=== PATIENT | female | born 1960 | race Caucasian/White ===

== ENCOUNTER 2022-09-01 13:28 | Emergency (ER) | payer BC ==
--- OUTSIDE RECORDS SUMMARY | 2022-09-01 13:33 | XMS REPORT | Continuity of Care Document ---
:1960 Author Organization [facility] t Address [address] [place] [address] Care Team Providers Name Role Phone Alfredo Edmond DO Primary Care Physician YOKASTA LACY Attending Clinician Unavailable ELIZABETH Attending Clinician Unavailable Katya Prince RN Attending Clinician Unavailable THOMAS DARDEN Attending Clinician Unavailable Thomas Darden MD Attending Clinician Brennen Roldan CRNA Attending Clinician Boris Goodman MD Attending Clinician [phone] Pob, [facility] Main Attending Clinician Unavailable Doctor Unassigned, [place] Attending Clinician Unavailable Yokasta Lacy MD Attending Clinician Only, Ad[facility] Test Attending Clinician Unavailable ASHLEY TRACY Attending Clinician Unavailable MD ASHLEY TRACY Attending Clinician Unavailable YOKASTA LACY Admitting Clinician Unavailable ELIZABETH Admitting Clinician Unavailable THOMAS DARDEN Admitting Clinician Unavailable Thomas Darden MD Admitting Clinician Yokasta Lacy MD Admitting Clinician ASHLEY TRACY Admitting Clinician Unavailable MD ASHLEY TRACY Admitting Clinician Unavailable Payers Payer Name Policy Type Policy Number Effective Date Expiration Date S navya [employer] BLUE [id number] 2020 ADVANTAGE HMO 00:00:00 Problems This patient has no known problems. Allergies, Adverse Reactions, Alerts Allergy Allergy Status Severity Reaction(s) Onset Inactive Treating Comm ents Source Name Type Date Date Clinician CEPHALOS Drug Active N/V Univers PORINS Class 3- ity of 00:00: 00 Medical Branch Cephalos Propensi Active Nausea Fainting; Uni vers porins ty to and/or 3 Itching ity of adverse Vomiting 00:00: [place] reaction 00 Medical s Branch Penicill Drug Active Rash Univers ins Allergy 2- ity of 00:00: 00 Medical Branch PENICILL Drug Active Low Rash Univers INS Class 2- ity of 00:00: 00 [facility] Penicill Propensi Active Swelling Meth poli ins ty to [address] adverse 00:00: Hospita reaction 00 l s to drug Cephalos Propensi Active Other (See Me thodi porins ty to Comments) 3 st adverse 00:00: Hospita reaction 00 l s to drug Lisinopr Propensi Active Other (See Me thodi il ty to Comments) 12-24 adverse 00:00: Hospita reaction 00 l s to drug Family History Family Member Diagnosis Comments Start Date Stop Date Source Natural brother Diabetes [facility] Natural father Aneurysm [facility] Natural mother No Known Problems Met [facility] Social History Social Habit Start Date Stop Date Quantity Comments Source Exposure to Not sure University SARS-CoV-2 (event) [facility] History of tobacco Cigarette Smoker [facility] use [facility] Tobacco use and 2020-12-14 2020-12-14 Never used Universit y of exposure 00:00:00 00:00:00 [facility] Tobacco Comment 2020-12-14 2020-12-14 quit 2012 Universit y of 00:00:00 00:00:00 [facility] Alcohol intake 2020-06-22 2020-06-22 Current drinker [facility] 00:00:00 00:00:00 of alcohol Hospital (finding) Cigarettes smoked 2020-06-04 2020-06-[address] current (pack per 00:00:00 00:00:00 Hospita l day) - Reported Cigarette 2020-06-04 2020-06-04 [facility] pack-years 00:00:00 00:00:00 Hospital Alcohol Comment 2020-06-04 2020-06-04 weekly [facility] 00:00:00 00:00:00 [facility] Sex Ass[birth year] At [birth year] [facility] 00:00:00 00:00:00 [facility] Smoking Status Start Date Stop Date Source Former smoker 2020-12-14 00:00:00 2020-12-14 00:00:00 [facility] Unknown if ever smoked [facility] Medications Ordered Filled Start Stop Current Ordering Indication Dosage Frequency Signature Comments Components Source Medication Medication Date Date Medication? Clinician (SIG) Name Name neomycin-po Yes PRN, Univer s lymyxin-dex 30 Starting ity of amethasone 14:39: on Sun (MAXITROL) 00 01/18/22 at Med ical 3.5 0939, Branch mg/g-10,000 Until unit/g-0.1 Discontinu % ed, ophthalmic Routine, ointment Intra-op neomycin-po No PRN, Unive rs lymyxin-dex 3-30 01-18 Starting ity of amethasone 14:39: 17[place]23 [place] (MAXITROL[place] 00 :47 01/18/22 at Med ical 3.5 0939, Branch mg/g-10,000 Until Wed unit/g-0.1 01/18/22 at % 1223, ophthalmic Routine, ointment Intra-op dexamethaso Yes PRN, Univer s ne -30 Starting ity of (DECADRON 14:38: on Sun [place] PHOSPHATE) 00 01/18/22 at Med ical injection 0938, Branch Until Discontinu ed, Routine, Intra-op carbachoL Yes PRN, Univers (MIOSTAT) 330 Starting ity of 0.01 % 14:38: on Sun [place] intraocular 00 01/18/22 at Il dical injection 0938, Branch Until Discontinu ed, Routine, Intra-op DUOVISC 2022-0 Yes PRN, Univers (DUOVISC 01-18 Starting ity of VISCO 14:38: on Sun [place] ELASTIC) 3 00 01/18/22 at Med ical %-4 %(0.5 0938, Branch mL) 1 % Until (0.55 mL) Discontinu intraocular ed, injection Routine, Intra-op dexamethaso 2021- No PRN, Unive rs ne 01-18 Starting ity of (DECADRON 14:38: 17:23 on Sun [place] PHOSPHATE) 00 :47 01/18/22 at Med ical injection 0938, Branch Until Sun01/18/22 at 1223, Routine, Intra-op carbachoL 2021- No PRN, Univers (MIOSTAT) 01-18 Starting ity o f 0.01 % 14:38: 17:23 on Sun [place] intraocular 00 :47 01/18/22 at Il dical injection 0938, Branch Until Sun01/18/22 at 1223, Routine, Intra-op DUOVISC 2021- No PRN, Univers (DUOVISC 01-18 Starting ity of VISCO 14:38: 17:23 on Sun ELASTIC) 3 00 :47 01/18/22 at Med ical %-4 %(0.5 0938, Branch mL) 1 % Until Wed (0.55 mL) 01/18/22 at intraocular 1223, injection Routine, Intra-op water for Yes PRN, Univers irrigation 01-18 Starting ity o f irrigation 14:32: on Wed [place] solution 00 01/18/22 at Medic al 0932, Branch Until Discontinu ed, Routine, Intra-op water for 2021- No PRN, Univers irrigation 01-18 Starting ity of irrigation 14:32: 17:23 on Wed [place] solution 00 :47 01/18/22 at Medic al 0932, Branch Until Sun01/18/22 at 1223, Routine, Intra-op Hyaluronida Yes PRN, Univer s se, Human 01-18 Starting ity of Recomb. 14:28: on Sun [place] (HYLENEX) 00 01/18/22 at Medi amee injection 0928, Branch Until Discontinu ed, Routine, Intra-op Hyaluronida 2021- No PRN, Unive rs se, Human 01-18 Starting ity o f Recomb. 14:28: 17:23 on Sun (HYLENEX) 00 :47 01/18/22 at [facility] [place]ee injection 0928, Branch Until Sun01/18/22 at 1223, Routine, Intra-op eye block Yes PRN, Univers syringe 11 30 Starting ity o f mL 14:26: on Sun01/18/22 at [facility] 0926, Branch Until Discontinu ed, Intra-op eye block 2021- No PRN, Univers syringe 11 01-18 Starting ity of mL 14:26: 17:23 on Sun 00 :47 01/18/22 at [facility] 0926, Branch Until Sun01/18/22 at 1223, Intra-op EPINEPHrine Yes PRN, Univer s 1:1,000 (1 01-18 Starting ity o f mg/mL) 14:25: on Sun (ADRENALIN) 01/18/22 at Il dical injection 0925, Branch Until Discontinu ed, Routine, Intra-op balanced Yes PRN, Univers salt irrig 01-18 Starting ity o f soln comb1 14:25: on Sun (BSS PLUS) 01/18/22 at [facility] ical ophthalmic 0925, Branch solution Until 500 mL bag Discontinu ed, Routine, Intra-op lidocaine 2021- No Intravenou U nivers 1% 01-18 s, ONCE ity of (XYLOCAINE) 14:25: 15:13 [place]TRA [place] 100 mg/10 00 :59 PROCEDURE, [facility] mL (1 %) Starting Branch injection on Sun01/18/22 at 0925, Until Alicia 01/19/22 at 1013, Routine, Intra-op propofoL IV 2021- No Intravenou Univers infusion 01-18 s, ONCE ity of 14:25: 15:13 INTRA [place] 00 :55 PROCEDURE, Medical Starting Branch on Sun01/18/22 at 0925, Until [place] 01/19/22 at 1013, Routine, Intra-op EPINEPHrine 2021- No PRN, Unive rs 1:1,000 (1 01-18 Starting ity of mg/mL) 14:25: 17:23 on Sun [place] (ADRENALIN) 00 :47 01/18/22 at Il dical injection 0925, Branch Until Sun01/18/22 at 1223, Routine, Intra-op balanced 2021- No PRN, Univers salt irrig 01-18 Starting ity of soln comb1 14:25: 17:23 on Sun [place] (BSS PLUS) 00 :47 01/18/22 at Med ical ophthalmic 0925, Branch solution Until Sun 500 mL bag 01/18/22 at 1223, Routine, Intra-op lactated 2021- No IV Univers ringers IV 01-18 Infusion, ity of infusion 14:18: 15:14 [place]OUS [place] 00 :03 PRN, Medical Starting Branch on Sun01/18/22 at 0918, Until [place] 01/19/22 at 1014, Routine, Intra-op cyclopent 2021- No .5mL 0.5 mL, Univ ers 1%-tropic 01-18 Right Eye, ity of 1%-phenyl 13:15: 13:03 ONCE, 1 [place] 2.5%-ketor 00 :00 dose, On Medic al 0.5% Sun Branch (MYDRIATIC 01/18/22 at #5) 0815, ophthalmic Routine, solution DSU Pre-op syringe 0.5 mL lactated 2021- No 1000mL at 42 Unive rs ringers IV 01-18 mL/hr, ity of infusion 13:15: 13:03 1,000 mL, Yunior as 1,000 mL 00 :00 IV Medical Infusion, Branch ONCE, 1 dose, On Sun01/18/22 at 0815, Routine, DSU Pre-op cyclopent 2021- No .5mL 0.5 mL, Univ ers 1%-tropic 01-18 Right Eye, ity of 1%-phenyl 13:15: 13:03 ONCE, 1 [place] 2.5%-ketor 00 :00 dose, On Medic al 0.5% Sun Branch (MYDRIATIC 3/30/22 at #5) 0815, ophthalmic Routine, solution DSU Pre-op syringe 0.5 mL lactated 2021- No 1000mL at 42 Unive rs ringers IV 3-30 03-30 mL/hr, ity of infusion 13:15: 13:03 1,000 mL, [place]un[place] as 1,000 mL 00 :00 IV Medical Infusion, Branch ONCE, 1 dose, On Sun01/18/22 at 0815, Routine, DSU Pre-op aspirin 325 2021-0 Yes 325mg Take 325 U nivers mg tablet 3-30 mg by ity of 10:23: mouth [place] [address] daily. Medical Branch carvediloL Yes 25mg Take 25 mg U nivers 25 mg 3-30 by mouth 2 ity of tablet 10:23: (two) [place] [address] times Medical daily with Branch meals. DULoxetine Yes 30mg Take 30 mg U nivers (CYMBALTA) 3-30 by mouth ity o f 30 mg 10:23: daily. [place] [address] Medical Branch losartan 0 Yes 100mg Take 100 Univ ers 100 mg 3-30 mg by ity of tablet 10:23: mouth [place] [address] daily. Medical Branch metFORMIN Yes 500mg Take 500 Uni vers 500 mg 3-30 mg by ity of tablet 10:23: mouth 2 [place] [address] (two) Medical times Branch daily with meals. memantine Yes 10mg Take 10 mg Un ethan (NAMENDA) 3-30 by mouth ity of 10 mg 10:23: daily. [place] [address] Medical Branch RABEprazole 0 Yes 20mg Take 20 mg Univers 10 mg CDRS 3-30 by mouth. ity of 10:23: [place] [address] Medical Branch rosuvastati 0 Yes 20mg Take 20 mg Univers n 20 mg 3-30 by mouth ity of tablet 10:23: at [place] [address] bedtime. Medical Branch metoprolol 0 Yes Take by Univ ers succinate 3-30 mouth. ity of 25 mg CSpX 10:23: [place] [address] Medical Branch aspirin 325 2021-0 Yes 325mg Take 325 U nivers mg tablet 3-30 mg by ity of 10:23: mouth [place] [address] daily. Medical Branch carvediloL 2021-0 Yes 25mg Take 25 mg U nivers 25 mg 3-30 by mouth 2 ity of tablet 10:23: (two) [place] [address] times Medical daily with Branch meals. DULoxetine 2021-0 Yes 30mg Take 30 mg U nivers (CYMBALTA) 3-30 by mouth ity o f 30 mg 10:23: daily. [place] capsule Medical Branch losartan 2021-0 Yes 100mg Take 100 Univ ers 100 mg 3-30 mg by ity of tablet 10:23: mouth [place] [address] daily. Medical Branch metFORMIN 0 Yes 500mg Take 500 Uni vers 500 mg 3-30 mg by ity of tablet 10:23: mouth 2 [place] [address] (two) Medical times Branch daily with meals. memantine 0 Yes 10mg Take 10 mg Un ethan (NAMENDA) 3-30 by mouth ity of 10 mg 10:23: daily. [place] [address] Medical Branch RABEprazole 0 Yes 20mg Take 20 mg Univers 10 mg CDRS 3-30 by mouth. ity of 10:23: [place] [address] Medical Branch rosuvastati 0 Yes 20mg Take 20 mg Univers n 20 mg 3-30 by mouth ity of tablet 10:23: at [place] [address] bedtime. Medical Branch metoprolol 0 Yes Take by Univ ers succinate 3-30 mouth. ity of 25 mg CSpX 10:23: [place] [address] Medical Branch aspirin 325 2021-0 Yes 325mg Take 325 U nivers mg tablet 3-30 mg by ity of 10:23: mouth [place] [address] daily. Medical Branch carvediloL 0 Yes 25mg Take 25 mg U nivers 25 mg 3-30 by mouth 2 ity of tablet 10:23: (two) [place] [address] times Medical daily with Branch meals. DULoxetine 2021-0 Yes 30mg Take 30 mg U nivers (CYMBALTA) 3-30 by mouth ity o f 30 mg 10:23: daily. [place] [address] Medical Branch losartan 0 Yes 100mg Take 100 Univ ers 100 mg 3-30 mg by ity of tablet 10:23: mouth [place] [address] daily. Medical Branch metFORMIN 2021-0 Yes 500mg Take 500 Uni vers 500 mg 3-30 mg by ity of tablet 10:23: mouth 2 [place] [address] (two) Medical times Branch daily with meals. memantine 2022-0 Yes 10mg Take 10 mg Un ethna (NAMENDA) 3-30 by mouth ity of 10 mg 10:23: daily. [place] [address] Medical Branch RABEprazole 0 Yes 20mg Take 20 mg Univers 10 mg CDRS 3-30 by mouth. ity of 10:23: [place] [address] Medical Branch rosuvastati 0 Yes 20mg Take 20 mg Univers n 20 mg 3-30 by mouth ity of tablet 10:23: at [place] [address] bedtime. Medical Branch metoprolol 0 Yes Take by Univ ers succinate 3-30 mouth. ity of 25 mg CSpX 10:23: [place] [address] Medical Branch aspirin 325 0 Yes 325mg Take 325 U nivers mg tablet 3-30 mg by ity of 10:23: mouth [place] [address] daily. Medical Branch carvediloL Yes 25mg Take 25 mg U nivers 25 mg 3-30 by mouth 2 ity of tablet 10:23: (two) [place] [address] times [facility] daily with Branch meals. DULoxetine Yes 30mg Take 30 mg U nivers (CYMBALTA) 3-30 by mouth ity o f 30 mg 10:23: daily. [place] [address] Medical Branch losartan 0 Yes 100mg Take 100 Univ ers 100 mg 3-30 mg by ity of tablet 10:23: mouth [place] [address] daily. Medical Branch metFORMIN 0 Yes 500mg Take 500 Uni vers 500 mg 3-30 mg by ity of tablet 10:23: mouth 2 [place] [address] (two) Medical times Branch daily with meals. memantine 0 Yes 10mg Take 10 mg Un ethan (NAMENDA) 3-30 by mouth ity of 10 mg 10:23: daily. [place] [address] Medical Branch RABEprazole 0 Yes 20mg Take 20 mg Univers 10 mg CDRS 3-30 by mouth. ity of 10:23: [place] [address] Medical Branch rosuvastati 0 Yes 20mg Take 20 mg Univers n 20 mg 3-30 by mouth ity of tablet 10:23: at [place] [address] bedtime. Medical Branch metoprolol 0 Yes Take by Univ ers succinate 3-30 mouth. ity of 25 mg CSpX 10:23: [place] [address] Medical Branch aspirin 650 0 Yes 325mg Take 325 U nivers mg EC 2-24 mg by ity of tablet 18:49: mouth [place] [address] daily. Medical Branch carvediloL 0 Yes 25mg Take 25 mg U nivers 25 mg 2-24 by mouth 2 ity of tablet 18:49: (two) [address] Medical daily with Branch meals. DULoxetine 0 Yes 30mg Take 30 mg U nivers (CYMBALTA) 2-24 by mouth ity o f 30 mg 18:49: daily. [place] capsule Medical Branch losartan 50 0 Yes 50mg Take 50 mg Univers mg tablet 2-24 by mouth ity of 18:49: daily. [address] metFORMIN 0 Yes 500mg Take 500 Uni vers 500 mg 2-24 mg by ity of tablet 18:49: mouth 2 [place] [address] (two) Medical times Branch daily with meals. memantine 0 Yes 10mg Take 10 mg Un ethan (NAMENDA) 2-24 by mouth ity of 10 mg 18:49: daily. [address] Branch RABEprazole 0 Yes 20mg Take 20 mg Univers 10 mg CDRS 2-24 by mouth. ity of 18:49: [address] rosuvastati Yes 20mg Take 20 mg Univers n 20 mg 2-24 by mouth ity of tablet 18:49: at [place] [address] bedtime. Medical Branch metoprolol Yes Take by Univ ers succinate 2-24 mouth. ity of 25 mg CSpX 18:49: [address] aspirin 650 0 Yes 325mg Take 325 U nivers mg EC 2-24 mg by ity of tablet 18:49: mouth [place] [address] daily. Medical Branch carvediloL 0 Yes 25mg Take 25 mg U nivers 25 mg 2-24 by mouth 2 ity of tablet 18:49: (two) [address] daily with Branch meals. DULoxetine 0 Yes 30mg Take 30 mg U nivers (CYMBALTA) 2-24 by mouth ity o f 30 mg 18:49: daily. [place] capsule [address] [place] [address] losartan 50 0 Yes 50mg Take 50 mg Univers mg tablet 2-24 by mouth ity of 18:49: daily. [place] 17 Medical Branch metFORMIN 2021-0 Yes 500mg Take 500 Uni vers 500 mg 2-24 mg by ity of tablet 18:49: mouth 2 [place] [address] (two) Medical [facility] daily with meals. memantine Yes 10mg Take 10 mg Un ethan (NAMENDA) 2-24 by mouth ity of 10 mg 18:49: daily. [place] tablet Medical Branch RABEprazole Yes 20mg Take 20 mg Univers 10 mg CDRS 2-24 by mouth. ity of 18:49: [place] [address] Medical Branch rosuvastati Yes 20mg Take 20 mg Univers n 20 mg 2-24 by mouth ity of tablet 18:49: at [place] [address] bedtime. Medical Branch metoprolol Yes Take by Univ ers succinate 2-24 mouth. ity of 25 mg CSpX 18:49: [address] Branch simethicone Yes PRN, Univer s (GAS RELIEF 2-24 Starting ity of (SIMETHICON 16:40: Wed [facility])) 40 00 12/15/20 at Medical mg/0.6 mL 1040, Branch drops Until Discontinu ed, Routine, Intra-op aspirin 650 Yes 325mg Take 325 U nivers mg EC 2-24 mg by ity of tablet 12:49: mouth [place] [address] daily. Medical Branch carvediloL Yes 25mg Take 25 mg U nivers 25 mg 2-24 by mouth 2 ity of tablet 12:49: (two) [place] [address] times [facility] daily with Branch meals. DULoxetine Yes 30mg Take 30 mg U nivers (CYMBALTA) 2-24 by mouth ity o f 30 mg 12:49: daily. [place] [address] Medical Branch losartan 50 Yes 50mg Take 50 mg Univers mg tablet 2-24 by mouth ity of 12:49: daily. [place] [address] Medical [place] metFORMIN Yes 500mg Take 500 Uni vers 500 mg 2-24 mg by ity of tablet 12:49: mouth 2 [place] [address] (two) Medical times [place] daily with meals. memantine Yes 10mg Take 10 mg Un ethan (NAMENDA) 2-24 by mouth ity of 10 mg 12:49: daily. [place] [address] Medical Branch RABEprazole Yes 20mg Take 20 mg Univers 10 mg CDRS 2-24 by mouth. ity of 12:49: [place] [address] Medical Branch rosuvastati Yes 20mg Take 20 mg Univers n 20 mg 2-24 by mouth ity of tablet 12:49: at [place] [address] bedtime. Medical Branch metoprolol Yes Take by [facility] ers succinate 2-24 mouth. ity of 25 mg CSpX 12:49: [place] [address] Medical [place] aspirin 650 0 Yes 325mg Take 325 U nivers mg EC 2-24 mg by ity of tablet 12:49: mouth [place] [address] daily. Medical Branch carvediloL Yes 25mg Take 25 mg U nivers 25 mg 2-24 by mouth 2 ity of tablet 12:49: (two) [place] [address] times [facility] daily with Branch meals. DULoxetine Yes 30mg Take 30 mg U nivers (CYMBALTA) 2-24 by mouth ity o f 30 mg 12:49: daily. [facility] 17 Medical Branch losartan 50 Yes 50mg Take 50 mg Univers mg tablet 2-24 by mouth ity of 12:49: daily. [place] [address] Medical [place] metFORMIN Yes 500mg Take 500 Uni vers 500 mg 2-24 mg by ity of tablet 12:49: mouth 2 [place] [address] (two) Medical times [place] daily with meals. memantine Yes 10mg Take 10 mg Un ethan (NAMENDA) 2-24 by mouth ity of 10 mg 12:49: daily. [facility] 17 Medical Branch RABEprazole Yes 20mg Take 20 mg Univers 10 mg CDRS 2-24 by mouth. ity of 12:49: [place] [address] Medical [place] rosuvastati Yes 20mg Take 20 mg Univers n 20 mg 2-24 by mouth ity of tablet 12:49: at [place] [address] bedtime. Medical Branch metoprolol Yes Take by [facility] ers succinate 2-24 mouth. ity of 25 mg CSpX 12:49: [address] DULoxetine Yes 30mg Take 30 mg U nivers (CYMBALTA) 2-09 by mouth ity o f 30 mg 21:34: daily. [facility] 58 Medical Branch losartan 50 0 Yes 50mg Take 50 mg Univers mg tablet 2-09 by mouth ity of 21:34: daily. [place] [address] Medical Branch metFORMIN 0 Yes 500mg Take 500 Uni vers 500 mg 2-09 mg by ity of tablet 21:34: mouth 2 [place] [address] (two) Medical times Branch daily with meals. memantine 0 Yes 10mg Take 10 mg Un ethan (NAMENDA) 2-09 by mouth ity of 10 mg 21:34: daily. [place] [address] Medical Branch RABEprazole 0 Yes 20mg Take 20 mg Univers 10 mg CDRS 2-09 by mouth. ity of 21:34: [place] [address] Medical Branch rosuvastati 0 Yes 20mg Take 20 mg Univers n 20 mg 2-09 by mouth ity of tablet 21:34: at [place] [address] bedtime. Medical Branch DULoxetine 0 Yes 30mg Take 30 mg U nivers (CYMBALTA) 2-09 by mouth ity o f 30 mg 21:34: daily. [address] Branch losartan 50 0 Yes 50mg Take 50 mg Univers mg tablet 2-09 by mouth ity of 21:34: daily. [place] [address] Medical Branch metFORMIN 0 Yes 500mg Take 500 Uni vers 500 mg 2-09 mg by ity of tablet 21:34: mouth 2 [place] [address] (two) Medical times [place] daily with meals. memantine 0 Yes 10mg Take 10 mg Un ethan (NAMENDA) 2-09 by mouth ity of 10 mg 21:34: daily. [place] [address] Medical Branch RABEprazole 0 Yes 20mg Take 20 mg Univers 10 mg CDRS 2-09 by mouth. ity of 21:34: [place] [address] Medical Branch rosuvastati 0 Yes 20mg Take 20 mg Univers n 20 mg 2-09 by mouth ity of tablet 21:34: at [place] [address] bedtime. Medical Branch aspirin 650 0 Yes 650mg Take 650 U nivers mg EC 2-09 mg by ity of tablet 21:34: mouth [place] 57 daily. Medical Branch carvediloL 0 Yes 25mg Take 25 mg U nivers 25 mg 2-09 by mouth 2 ity of tablet 21:34: (two) [place] [address] times Medical daily with Branch meals. aspirin 650 Yes 650mg Take 650 U nivers mg EC 2-09 mg by ity of tablet 21:34: mouth [place] 57 daily. Medical Branch carvediloL Yes 25mg Take 25 mg U nivers 25 mg 2-09 by mouth 2 ity of tablet 21:34: (two) [place] 57 times Medical daily with Branch meals. metFORMIN 2020-0 Yes 500mg QD Take 500 Met hodi XR 8-[address] (GLUCOPHAGE 14:42: mouth Hospi ta -XR) 500 mg 30 daily with l 24 hr breakfast. tablet metoprolol 2020-0 Yes 25mg QD Take 25 mg M ethodi succinate 8-[address] XL 14:42: daily. Hospita (TOPROL-XL) 30 l 25 mg 24 hr tablet losartan 2020-0 Yes 50mg QD Take 50 mg Met hodi (COZAAR) 50 8-[address] MG tablet 14:42: daily. Hospit a 30 l rosuvastati 2020-0 Yes 20mg QD Take 20 mg Methodi n (CRESTOR) 8-[address] 20 mg 14:42: daily. Hospita tablet 30 l RABEprazole 2020-0 Yes 20mg QD Take 20 mg Methodi (ACIPHEX) 8-[address] 20 mg EC 14:42: daily. Hospita tablet 30 l DULoxetine 2020-0 Yes 30mg QD Take 30 mg M ethodi (CYMBALTA) 8-[address] 30 MG 14:42: daily. Hospita capsule 30 l omega-3s/dh 2020-0 Yes 3{capsu QD Take 3 M ethodi a/epa/fish 8-21 le} capsules st oil (OMEGA 14:42: by mouth Hos joni 3 ORAL) 30 daily. l aspirin 2020-0 Yes 325mg QD Take 325 Metho di (ECOTRIN) 8-[address] 325 MG 14:42: mouth Hospita enteric 30 daily. l coated tablet Immunizations Ordered Filled Immunization Date Status Comments [facility] Immunization Name Name SARS-COV-2 COVID-19 2021-10-12 Completed Unive rsity of [employer] ANGEL-SUCROSE 00:00:00 [place] [facility] VACCINE (AGUIRRE TOP) Branch SARS-COV-2 COVID-19 2021-10-12 Completed Unive rsity of PFIZER ANGEL-SUCROSE 00:00:00 [place] [facility] VACCINE (AGUIRRE TOP) Branch SARS-COV-2 COVID-19 2021-10-12 Completed Unive rsity of PFIZER ANGEL-SUCROSE 00:00:00 [place] [facility] VACCINE (AGUIRRE TOP) Branch SARS-COV-2 COVID-19 2021-10-12 Completed Unive rsity of PFIZER ANGEL-SUCROSE 00:00:00 [place] [facility] VACCINE (AGUIRRE TOP) Branch SARS-COV-2 COVID-19 2021-02-09 Completed Unive rsity of MODERNA VACCINE 00:00:00 [place] [facility] ical Branch SARS-COV-2 COVID-19 2021-02-09 Completed Unive rsity of MODERNA VACCINE 00:00:00 [facility] [place] [facility] Branch SARS-COV-2 COVID-19 2021-02-09 Completed Unive rsity of MODERNA VACCINE 00:00:00 [facility] [place] [facility] Branch SARS-COV-2 COVID-19 2021-02-09 Completed Unive rsity of MODERNA VACCINE 00:00:00 [facility] [place] [facility] Branch SARS-COV-2 COVID-19 2021-01-12 Completed Unive rsity of MODERNA VACCINE 00:00:00 [facility] [place] [facility] Branch SARS-COV-2 COVID-19 2021-01-12 Completed Unive rsity of MODERNA VACCINE 00:00:00 [facility] [place] [facility] Branch SARS-COV-2 COVID-19 2021-01-12 Completed Unive rsity of MODERNA VACCINE 00:00:00 [facility] [place] [facility] Branch SARS-COV-2 COVID-19 2021-01-12 Completed Unive rsity of MODERNA VACCINE 00:00:00 [facility] Vital Signs Vital Name Observation Time Observation Value Comments Source Systolic blood 2022-01-18 15:10:00 130 mm[Hg] Univer sity of pressure [facility] Diastolic blood 2022-01-18 15:10:00 62 mm[Hg] Unive rsity of pressure [facility] Heart rate 2022-01-18 15:10:00 61 /min Universi ty of [facility] Respiratory rate 2022-01-18 15:10:00 14 /min Univ ersity of [place] [facility] [place] Oxygen saturation in 2022-01-18 15:10:00 95 /min [facility] Arterial blood by [facility] Pulse oximetry Branch Body temperature 2022-01-18 14:54:00 36.39 Noelle [facility] Body height 2022-01-05 13:50:00 170.2 cm [facility] [place] Body weight 2022-01-05 13:50:00 86.2 kg [facility] [place] BMI 2022-01-05 13:50:00 29.76 kg/m2 [facility] Respiratory rate 2022-01-18 14:49:00 14 /min [facility] [place] Body height 2022-01-05 13:50:00 170.2 cm [facility] [place] Body weight 2022-01-05 13:50:00 86.2 kg [facility] BMI 2022-01-05 13:50:00 29.76 kg/m2 [facility] Systolic blood 2020-12-15 18:10:00 134 mm[Hg] [facility] Diastolic blood 2020-12-15 18:10:00 63 mm[Hg] [facility] rate 2020-12-15 18:10:00 61 /min [facility] Body temperature 2020-12-15 18:10:00 36.67 Noelle [facility] Respiratory rate 2020-12-15 18:10:00 20 /min [facility] Oxygen saturation in 2020-12-15 18:10:00 99 /min [facility] Arterial blood by [facility] Pulse oximetry Branch Body height 2020-12-14 15:44:00 170.2 cm [facility] [place] Body weight 2020-12-14 15:44:00 86.2 kg [facility] BMI 2020-12-14 15:44:00 29.76 kg/m2 [facility] Procedures Procedure Date / Time Performing Source Performed Clinician PHACOEMULSIFICATION OF 2022-01-18 Thomas Darden [facility] CATARACT WITH INTRAOCULAR 14:16:00 [facility] LENS IMPLANT POCT GLUCOSE (AUTOMATED) 2022-01-18 Thomas Darden [facility] 13:00:00 Medical [place] POCT GLUCOSE (AUTOMATED) 2022-01-18 Thomas Darden [facility] 13:00:00 Medical Branch ASSIGNMENT OF BENEFITS 2022-01-13 Doctor Unassigned, [facility] 16:37:04 [facility] COLONOSCOPY (ENDO) 2020-12-15 Alfredo Edmond [facility] 16:57:12 Medical Branch POCT GLUCOSE(AGE >30DAYS) 2020-12-15 Kenneth Galindo [facility] 16:29:00 Medical Branch POCT GLUCOSE (AUTOMATED) 2020-12-15 Yokasta Lacy [facility] 16:26:00 C Medical Branch DAY SURGERY - ADC 2020-12-15 Doctor Unassigned, [facility] 06:01:00 [facility] ASSIGNMENT OF BENEFITS 2020-12-14 Doctor Unassigned, [facility] 17:50:35 [facility] ASSIGNMENT OF BENEFITS 2020-12-14 Doctor Unassigned, [facility] 17:50:17 [facility] Plan of Care Planned Activity Planned Date Details Comments Source Future Scheduled 2022-09-01 Hepatitis C screening [facility] Test 13:31:37 (procedure) [code = 554362313] Future Scheduled 2022-09-01 Screening for [facility] Test 13:31:37 malignant neoplasm of cervix (procedure) [code = 627552348] Future Scheduled 2022-09-01 BREAST CANCER [facility] Test 13:31:37 SCREENING [code = BREAST CANCER SCREENING] Future Scheduled 2022-09-01 COLONOSCOPY SCREENING [facility] Test 13:31:37 [code = COLONOSCOPY SCREENING] Future Scheduled 2022-09-01 SHINGLES VACCINES (1 Met [facility] Test 13:31:37 of 2) [code = SHINGLES VACCINES (1 of 2)] Future Scheduled 2022-09-01 HEPATITIS B VACCINES Met [facility] Test 13:31:37 (1 of 3 - Risk 3-dose series) [code = HEPATITIS B VACCINES (1 of 3 - Risk 3-dose series)] Future Scheduled 2022-09-01 COVID-19 VACCINE (4 - Me [facility] Test 13:31:37 Booster for Moderna series) [code = COVID-19 VACCINE (4 - Booster for Moderna series)] Future Scheduled 2022-09-01 INFLUENZA VACCINE Method [facility] Test 13:31:37 [code = INFLUENZA VACCINE] Encounters Start End Encounter Admission Attending Care Care Encounter Source Date/Time Date/Time Type Type Clinicians Facility Department ID 2021-08-21 Outpatient R KG [facility] NILA [id number] Univers 00:47:44 YOKASTA Mitchell itherber [facility] 2022-05-22 2022-05-22 Outpatient GREGORYLEMILLY_ EM [facility] [address] [place] 00:00:00 00:00:00 LISHA 0801 da [facility] Outre h Program 2022-01-19 2022-01-19 Nurse Katya Prince [id number] Univers 00:00:00 00:00:00 Triage MADISON 350.1.13.10 it y of HOSPITAL 4.2.7.2.686 Yunior as [id number] [place] [id number] Branch 2022-01-18 2022-01-18 Out[facility] OPH [id number] Univers 07:50:00 10:23:00 THOMAS oreilly [facility] 2022-01-18 2022-01-18 Hospital [facility] [id number] Univers 07:50:00 10:23:00 Encounter Thomas BILLS 350.1.13.10 [place] [id number] [facility] 071 Branch 2022-01-18 2022-01-18 Anesthesia Brennen Roldan [facility] 1.2.8 40.114 [id number] Univers 09:21:00 09:49:00 Event Boris Goodman 35 0.1.13.10 [place] [id number] [facility] 020 Branch 2022-01-18 2022-01-18 Surgery [facility] [id number] Univers 08:46:00 09:24:00 Thomas BILLS 350.1.13.10 [place] [id number] [facility] ica CENTER 020 Branch 2022-01-13 2022-01-13 Lending Activities Supervisor Stiven, Adc Lab Main [facility] 1.2.8 40.114 [id number] Univers 10:00:00 10:15:00 Visit Thomas Darden 350.1.13.1 0 [place] PROF[place] [id number] Il dical [facility] 353 [facility] 2022-01-13 2022-01-13 Outpatient R CHRISTIAN [facility] [id number] Univers 10:00:00 10:00:00 THOMAS itherber [facility] 2022-01-13 2022-01-13 Orders Doctor PORTER [id number] Univers 00:00:00 00:00:00 Only Unassigned, [place] 350.1.13.10 ity of [place] [facility] 4.2.7.2.686 Yunior as [id number] [facility] 00[address] [place] 2020-12-15 2020-12-15 Hospital [facility] [id number] Univers 09:15:00 12:34:00 Encounter Yokasta mitchell 350.1.13.10 [place] of [place] Surgical [id number] [facility] 071 Branch 2020-12-15 2020-12-15 Orders Doctor BUENROSTRO 1.2.840.114 [id number] Univers 00:00:00 00:00:00 Only Unassigned, [place] 350.1.13.10 ity of [place] [facility] 4.2.7.2.686 Yunior as [id number] [facility] 009 Branch 2020-12-14 2020-12-14 Laboratory Only, Adc Test [facility] 1.2.840. 114 [id number] Univers 11:51:24 12:06:24 Only Yokasta Lacy 350.1.1 3.10 [place] [id number] [facility] 353 [place] 2020-12-14 2020-12-14 [id number] Univers 08:45:00 08:45:00 YOKASTA Mitchell o f [facility] 2020-12-14 2020-12-14 Orders Doctor PORTER [id number] Univers 00:00:00 00:00:00 Only Unassigned, [place] 350.1.13.[address] [place] [facility] 4.2.7.2.686 [place] as [id number] [address] 2020-06-11 2020-06-11 [facility] 021 [id number] [place] 00:00:00 00:00:00 ASHLEY [address] 2020-06-08 2020-06-08 [facility] [id number] [place] 00:00:00 00:00:00 ASHLEY [address] Results Test Description Test Time Test Comments Results Result Comments Source POCT GLUCOSE (AUTOMATED) 2022-01-18 13:03:33 Test Item Value Reference Range Interpretation Comme nts POCT GLU (test code = 6700232125) 138 mg/dL 70-110 H Lab Interpretation (test code = 41603-7) Abnormal [facility] GLUCOSE (AUTOMATED)2022-01-18 13:03:33 Test Item Value Reference Range Interpretation Comments POCT GLU (test code = 5099610450) 138 mg/dL 70-110 H Lab Interpretation (test code = Abnormal 24862-5) [facility] GLUCOSE (AUTOMATED)2020-12-15 16:39:00 Test Item Value Reference Range Interpretation Comments POCT GLU (test code = 8406129315) 123 mg/dL 70-110 H Lab Interpretation (test code = Abnormal 25594-1) [facility] [id number] 16:29:00 Test Item Value Reference Range Interpretation Comments POCT Glu (age>30days) (test code = 123 mg/dL 70-110 A 3342) Lab Interpretation (test code = Abnormal 25059-1) [facility] [Presence] in Respiratory specimen by AGNIESZKA with probe [id number] 18:54:23 Test Item Value Reference Range Interpretation Comments SARS-CoV-2 (COVID-19) RNA Not detected Not-Detected [Presence] in Respiratory specimen by AGNIESZKA with probe detection (test code = 38373-4) [facility]
[2022-09-01 15:09] LABS: Absolute Lymphocytes (CBC) 1.4 K/uL (0.7-4.9); Lymphocytes % 17.5 % (15.3-44.8); MCV 89.9 fL (80-100); MPV 7.9 fL (7.6-11.3); RBC Red Blood Cell Count 3.34 M/uL (3.86-4.86)
[2022-09-01 15:14] LABS: Urine Blood Negative (Negative); Urine Glucose Negative (Negative); Urine Protein Negative (Negative); Urine Specific Gravity 1.015 (1.005-1.030); Urine pH 5.5 (5.0-7.0)
[2022-09-01] MEDS ORDERED: NA CHLORIDE 0.9% 500 ML ONE (15:16)
[2022-09-01 15:33] LABS: Urine RBC <5 /HPF (None Seen)
[2022-09-01 16:04] LABS: Albumin 3.4 g/dL (3.4-5.0); Potassium 3.8 mmol/L (3.5-5.1); Protein, Total 7.6 g/dL (6.4-8.2)
--- NOTE | 2022-09-01 17:17 | RAD REPORT ---
EXAM DESCRIPTION: CTAbdomen Pelvis W Contrast - 09/01/2022 4:58 pm CLINICAL HISTORY: lower abdomen pain, constipation COMPARISON: No comparisons TECHNIQUE: CT of the abdomen and pelvis was performed. All CT scans are performed using dose optimization technique as appropriate and may include automated exposure control or mA/KV adjustment according to patient size. FINDINGS: Lower chest: No acute abnormality. Liver: No acute abnormality or suspicious lesions. Biliary: No biliary ductal dilatation. Stomach: No significant focal abnormality. Duodenum: No significant focal abnormality. Pancreas: No significant abnormality. Spleen: No significant abnormality. Adrenal: No suspicious lesions. Kidney/ureter: No hydronephrosis. No renal calculi. Retroperitoneum: No retroperitoneal adenopathy. Vascular: Atherosclerosis Bowel: Moderate stool.. Appendectomy. Peritoneum: No ascites or free air. Bladder: Grossly unremarkable. Reproductive: No adnexal masses. Bones: No acute fracture. Other: n/a IMPRESSION: No acute intra-abdominal or pelvic finding. Incidental findings as noted above.
--- NOTE | 2022-09-01 18:44 | ER ---
Nurse's Notes [facility] Name: Maryse Christie Age: 62 yrs Sex: Female : 1960 Arrival Date: 09/01/2022 Time: 13:30 Bed 10 Private MD: Alfredo Edmond Diagnosis: Constipation, unspecified Presentation: 09/01 13:42 Chief complaint: Lower abdominal pain x 3 days, constipation x 1 month. Coronavirus ss screen: At this time, the client does not indicate any symptoms associated with coronavirus-19. Ebola Screen: No symptoms or risks identified at this time. Risk Assessment: Do you want to hurt yourself or someone else? Patient reports no desire to harm self or others. Onset of symptoms was July 2022. 13:42 Method Of Arrival: Ambulatory ss 13:42 Acuity: KALLIE 3 ss Historical: - Allergies: 13:43 Cephalexin Monohydrate; ss Vital Signs: 13:42 BP 141 / 67; Pulse 81; Resp 16; Temp 98.1; Pulse Ox 100% on R/A; Weight 82.55 kg; ss Height 5 ft. 6 in. (167.64 cm); Pain 6/10; 13:42 Body Mass Index 29.38 (82.55 kg, 167.64 cm) ss ED Course: 13:30 Patient arrived in ED. as 13:30 Alfredo Edmond DO is Private Physician. as 13:43 Triage completed. ss 13:43 Arm band placed on. ss 13:54 Olu Bess PA is PHCP. cp 13:54 Regis Sandoval MD is Attending Physician. cp 15:13 Lula Lomax, RN is Primary Nurse. iw 15:14 Urine collected: clean catch specimen, clear. tm3 17:00 CT Abd/Pelvis - IV Contrast Only In Process Unspecified. EDMS Administered Medications: 15:26 Drug: NS 0.9% 500 ml Route: IV; Rate: bolus; Site: right antecubital; iw Outcome: 18:44 Discharge ordered by MD. cp 18:56 Patient left the ED. iw Signatures: Dispatcher [employer] EDMS Ld Gomez tm3 Hilda Pardo as Lula Lomax RN RN Smirch, Bianka, RN Olu Tejeda PA PA cp Corrections: (The following items were deleted from the chart) 13:43 13:43 Allergies: No Known Allergies; ss
--- NOTE | 2022-09-01 18:45 | EDPHYS ---
Physician Documentation [facility] Name: Maryse Christie Age: 62 yrs Sex: Female : 1960 Arrival Date: 09/01/2022 Time: 13:30 Bed 10 Private MD: Alfredo Edmond ED Physician Regis Sandoval HPI: 09/01 14:33 This 62 yrs old Female presents to ER via Ambulatory with complaints of Abdominal Pain, cp Constipation. 14:33 The patient presents with abdominal pain in the lower abdomen. Onset: The cp symptoms/episode began/occurred 3 day(s) ago. Associated signs and symptoms: Pertinent positives: constipation, Pertinent negatives: blood in stools, chest pain, diarrhea, dysuria, fever, shortness of breath, vomiting. The symptoms are described as crampy. Severity of pain: in the emergency department the pain is unchanged despite home interventions. 14:35 Patient reports constipation with small bowel movements over past 1 month. Has had cp colonoscopy 2 years ago that was normal. Historical: - Allergies: 13:43 Cephalexin Monohydrate; ss ROS: 14:40 Constitutional: Negative for body aches, chills, fever, poor PO intake. cp 14:40 Eyes: Negative for injury, pain, redness, and discharge. cp 14:40 ENT: Negative for drainage from ear(s), ear pain, sore throat, difficulty swallowing, difficulty handling secretions. 14:40 Cardiovascular: Negative for chest pain, palpitations. 14:40 Respiratory: Negative for cough, shortness of breath, wheezing. 14:40 Abdomen/GI: Positive for abdominal pain, constipation, of the right lower quadrant and left lower quadrant, Negative for vomiting, diarrhea, anorexia, black/tarry stool, rectal bleeding. 14:40 Back: Negative for pain at rest, pain with movement. 14:40 : Negative for urinary symptoms. 14:40 Neuro: Negative for altered mental status, dizziness, headache, weakness. 14:40 All other systems are negative. Exam: 14:45 Constitutional: The patient appears in no acute distress, alert, awake, non-toxic, well cp developed, well nourished. 14:45 Head/Face: Normocephalic, atraumatic. cp 14:45 Eyes: Periorbital structures: appear normal, Conjunctiva: normal, no exudate, no injection, Sclera: no appreciated abnormality, Lids and lashes: appear normal, bilaterally. 14:45 ENT: External ear(s): are unremarkable, Nose: is normal, Mouth: Lips: moist, Oral mucosa: pink and intact, moist, Posterior pharynx: Airway: no evidence of obstruction, patent. 14:45 Neck: ROM/movement: is normal, is supple, without pain, no range of motions limitations. 14:45 Chest/axilla: Inspection: normal. 14:45 Cardiovascular: Rate: normal, Rhythm: regular, Edema: is not appreciated, JVD: is not appreciated. 14:45 Respiratory: the patient does not display signs of respiratory distress, Respirations: normal, no use of accessory muscles, no retractions, labored breathing, is not present, Breath sounds: are clear throughout, no decreased breath sounds, no stridor, no wheezing. 14:45 Abdomen/GI: Inspection: abdomen appears normal, Bowel sounds: active, all quadrants, Palpation: soft, in all quadrants, mild abdominal tenderness, in the right lower quadrant and left lower quadrant, rebound tenderness, is not appreciated, involuntary guarding, is not appreciated. 14:45 Back: CVA tenderness, is absent. 14:45 Neuro: Orientation: to person, place \T\ time. Mentation: is normal, Motor: moves all fours, strength is normal, Sensation: is normal. Vital Signs: 13:42 BP 141 / 67; Pulse 81; Resp 16; Temp 98.1; Pulse Ox 100% on R/A; Weight 82.55 kg; ss Height 5 ft. 6 in. (167.64 cm); Pain 6/10; 13:42 Body Mass Index 29.38 (82.55 kg, 167.64 cm) ss MDM: 14:17 Patient medically screened. cp 18:44 Data reviewed: vital signs, nurses notes, lab test result(s), radiologic studies, CT cp scan. 18:44 Differential diagnosis: bowel obstruction, fecal impaction, constipation, colon mass. cp Counseling: I had a detailed discussion with the patient and/or guardian regarding: the historical points, exam findings, and any diagnostic results supporting the discharge/admit diagnosis, lab results, radiology results, the need for outpatient follow up, a drainage inspector, to return to the emergency department if symptoms worsen or persist or if there are any questions or concerns that arise at home. Response to treatment: the patient's symptoms have mildly improved after treatment, and as a result, I will discharge patient. 09/01 14:28 Order name: CBC with Diff; Complete Time: 15:35 09/01 15:35 Interpretation: Normal except: RBC 3.34; HGB 10.4; HCT 30.0; MN% 12.6. 09/01 14:28 Order name: CMP; Complete Time: 18:00 cp 09/01 18:00 Interpretation: Normal except: NA 134; GLOB 4.2; A/G 0.8. cp 09/01 14:28 Order name: Lipase; Complete Time: 18:00 09/01 14:28 Order name: CT Abd/Pelvis - IV Contrast Only; Complete Time: 18:00 cp 09/01 14:28 Order name: Urine Microscopic Only; Complete Time: 15:35 09/01 15:14 Order name: Urine Dipstick-Ancillary; Complete Time: 15:35 EDMS 09/01 14:28 Order name: IV Saline Lock; Complete Time: 15:07 cp 09/01 14:28 Order name: Labs collected and sent; Complete Time: 15:08 cp 09/01 14:28 Order name: Urine Dipstick-Ancillary (obtain specimen); Complete Time: 15:08 cp Administered Medications: 15:26 Drug: NS 0.9% 500 ml Route: IV; Rate: bolus; Site: right antecubital; iw Disposition Summary: 09/01/22 18:44 Discharge Ordered Location: Home cp Problem: new cp Symptoms: have improved cp Condition: Stable cp Diagnosis - Constipation, unspecified cp Followup: cp - With: Private Physician - When: 2 - 3 days - Reason: Recheck today's complaints Discharge Instructions: - Discharge Summary Sheet cp - Constipation, Adult cp - High-Fiber Diet cp Forms: - Medication Reconciliation Form cp - Thank You Letter cp - Antibiotic Education cp - Prescription Opioid Use cp Prescriptions: - Dulcolax (bisacodyl) 10 mg Rectal suppository - insert 1 suppository by RECTAL route once daily As needed; 15 suppository; cp Refills: 0, Product Selection Permitted - Lactulose 10 gram/15 mL Oral Solution - take 30 milliliters by ORAL route once daily for 7 days; 300 milliliter; cp Refills: 0, Product Selection Permitted Signatures: Dispatcher [employer] Lula Fang RN RN iw Smirch, Shelby, RN RN ss Page, Corey, PA PA cp Corrections: (The following items were deleted from the chart) 13:43 13:43 Allergies: No Known Allergies; ss 18:00 18:00 Normal except: NA 134. cp cp
[2022-09-01] MEDS ORDERED: BISACODYL E.C. 5 MG TAB PO ONE (18:49)
[2022-09-01] MEDS ORDERED: DICYCLOMINE HCL 10 MG CAP ONE (18:49)
[2022-09-01] MEDS ORDERED: LACTULOSE 20 GM/30 ML UCUP ONE (18:50)
[2022-09-01 19:01] VITALS: BP 141/67; TEMP 98.1; O2SAT 100
== END 2022-09-01 18:56 | disposition home or self-care (01) ==
LOC: ER 13:28
DX: K59.00 Constipation, unspecified (principal); Z88.8 Allergy status to other drugs, medicaments and biological substances
CPT/HCPCS: 85025; 36415; 83690; 80053; 74177; 99283; Q9967; J7040; 81003; 81015

== ENCOUNTER 2024-06-18 09:01 | Day surgery (SDC) | payer OTHER ==
[2024-06-18 09:52] VITALS: BMI 29.0
[2024-06-18 10:10] LABS: Absolute Eosinophils 0.2 K/uL (0-0.5); Absolute Lymphocytes (CBC) 1.6 K/uL (0.7-4.9); Absolute Monocytes 0.4 K/uL (0.1-1.3); Absolute Neutrophil 2.9 K/uL (1.8-8.0); Basophils % 0.6 % (0-1.3); Eosinophils % 4.7 % (0-4.4); Hemoglobin 10.8 g/dL (12.0-15.0); Lymphocytes % 30.5 % (15.3-44.8); MCH 32.5 pg (27.0-35.0); MPV 8.1 fL (7.6-11.3); Neutrophils % 56.2 % (41.7-73.7); Platelets 208 thou/uL (152-406); RBC Red Blood Cell Count 3.33 M/uL (3.86-4.86); Red Cell Distribution Width 13.4 % (12.1-15.2)
[2024-06-18 10:18] LABS: PT Prothrombin Time 11.8 SECONDS (9.4-12.5); PTT, Activated Partial Thromb 32.6 SECONDS (24.3-36.9); Protime INR 1.06
[2024-06-18 10:28] LABS: Albumin 3.5 g/dL (3.4-5.0); Albumin/Globulin Ratio 1.1 (1.1-1.8); Anion Gap 4.6 mEq/L (5.0-15.0); Bilirubin Direct 0.2 mg/dL (0-0.2); Bilirubin Indirect, Calculated 0.4 mg/dL (0.2-0.8); Bilirubin Total 0.6 mg/dL (0.2-1.0); Globulin 3.2 g/dL (2.3-3.5); Potassium 4.6 mEq/L (3.5-5.1); Protein, Total 6.7 g/dL (6.4-8.2)
--- NOTE | 2024-06-18 12:55 | RAD REPORT ---
EXAM DESCRIPTION: RAD - Lumbar Puncture For Dx - 06/18/2024 12:19 pm CLINICAL HISTORY: Cognitive impairment COMPARISON: None FINDINGS: The risks, benefits and alternatives to the procedure were explained to the patient and in formed consent obtained. The patient was placed prone into the fluoroscopy suite. The skin and subcutaneous tissues were anest hetized with lidocaine. Under fluoroscopic guidance a 22 gauge spinal needle was advanced into the th ecal sac at L2-3 level. 15 cc of CSF was removed and sent to the lab. Patient experienced no immediate complication One fluoroscopic spot image obtained. Fluoroscopy time 1 minutes IMPRESSION: Lumbar puncture
[2024-06-18 13:27] LABS: CSF Glucose 56 mg/dL (40-70)
[2024-06-18 13:54] LABS: Fluid Total Volume 14.5 ml
[2024-06-18 13:55] LABS: Appearance CLEAR (CLEAR); Body Fluid Source CSF; Body Fluid WBC 1 /mm^3; Color of Supernate Not Xanthochromic (Not Xantho); Color of fluid Colorless (COLORLESS); Tube # #2
[2024-06-18 14:12] VITALS: BP 153/69; TEMP 97; O2SAT 100
[2024-06-28 19:52] LABS: BETA A 42/40 RATIO 0.11
== END 2024-06-18 14:05 | disposition home or self-care (01) ==
LOC: OR 09:01 → DS 14:05
PROVIDERS: ATTEND Psychiatry & Neurology Neurology with Special Qualifications in Child Neurology
PROC: 009U3ZX Drainage of Spinal Canal, Percutaneous Approach, Diagnostic (ICD-10-PCS; principal; 2024-06-18)
PROC: B01BZZZ Fluoroscopy of Spinal Cord (ICD-10-PCS; 2024-06-18)
DX: G31.84 Mild cognitive impairment of uncertain or unknown etiology (principal); G44.209 Tension-type headache, unspecified, not intractable; G45.9 Transient cerebral ischemic attack, unspecified
CPT/HCPCS: 36415; 62328; 77003; 80048; 80076; 82542; 82945; 84157; 85025; 85610; 85730; 89050

== ENCOUNTER 2024-12-16 08:26 | Observation (INO) | payer OTHER ==
[2024-12-16] MEDS ORDERED: MORPHINE 4 MG/ML SYR ONE (08:44)
[2024-12-16] MEDS ORDERED: ONDANSETRON 4 MG/2 ML VIAL ONE ×2 (08:44→12:04)
--- NOTE | 2024-12-16 09:04 | RAD REPORT ---
EXAMINATION: Head Brain Wo Cont CLINICAL INDICATION: Female, 64 years old.HEADACHE TECHNIQUE: Axial CT images from the skull base to the vertex without intravenous contrast. Coronal an d sagittal reformatted images were created from the data set. One or more of the following dose reduction techniques were used: Automated exposure control, adjustment of the mA and/or kV according to patient size, and/or iterative reconstruction. Unless otherwise specified, incidental findings do not require dedicated imaging follow-up. [id number]. COMPARISON: 08/02/2015 FINDINGS: INTRACRANIAL: No acute intracranial hemorrhage. No hydrocephalus. No mass effect or midline shift. No significant white matter disease. VASCULATURE: No visualized abnormalities in the arteries or dural venous sinuses. SCALP/SKULL: No calvarial fracture identified. No acute soft tissue abnormality. SINUSES: The visualized paranasal sinuses and mastoid air cells are predominantly clear. No significa nt mastoid fluid. IMPRESSION: No acute intracranial abnormality.
--- NOTE | 2024-12-16 09:05 | RAD REPORT ---
EXAMINATION: CTA HEAD CLINICAL INDICATION: Female, 64 years old. HEADACHE TECHNIQUE: Axial CT images were obtained through the head after intravenous contrast utilizing angiog raphic protocol with 3D post-processing (maximum intensity projection images, volume rendered images and/or shaded surface rendered images). One or more of the following dose reduction technique s were used: Automated exposure control, adjustment of the mA and/or kV according to patient size, and/or iterative reconstruction. Unless otherwise specified, incidental findings do not require dedic ated imaging follow-up. COMPARISON: No prior exam. FINDINGS: ICA: The petrous, cavernous, and supraclinoid segments of the bilateral internal carotid arteries are normal. The ophthalmic artery origins are visualized and normal. The posterior communicating arteries are patent. Bilateral ICA calcified plaque. FEDE: Anterior cerebral arteries are normal bilaterally. The anterior communicating artery is patent. MCA: Middle cerebral arteries are normal bilaterally. ENDLESS BELT FINISHER: Posterior cerebral arteries are normal bilaterally. Vertebrobasilar: The vertebral arteries are patent. The basilar artery is normal in appearance. Right dominant vertebral artery. 3D images confirm these findings. IMPRESSION: No occlusion, aneurysm, or hemodynamically significant stenosis identified.
[2024-12-16 09:08] LABS: Absolute Eosinophils 0.3 K/uL (0-0.5); Absolute Lymphocytes (CBC) 1.3 K/uL (0.7-4.9); Absolute Monocytes 0.5 K/uL (0.1-1.3); Absolute Neutrophil 2.2 K/uL (1.8-8.0); Basophils % 0.7 % (0-1.3); Eosinophils % 6.1 % (0-4.4); Hematocrit 35.4 % (36.0-45.0); Hemoglobin 12.4 g/dL (12.0-15.0); Lymphocytes % 30.3 % (15.3-44.8); MCH 31.7 pg (27.0-35.0); MCV 90.6 fL (80-100); MPV 8.9 fL (7.6-11.3); Monocytes % 10.8 % (3.3-12.3); Neutrophils % 52.1 % (41.7-73.7); Platelets 179 thou/uL (152-406); RBC Red Blood Cell Count 3.91 M/uL (3.86-4.86); Red Cell Distribution Width 13.8 % (12.1-15.2)
[2024-12-16 09:20] LABS: PT Prothrombin Time 12.5 SECONDS (10.0-13.0); PTT, Activated Partial Thromb 31.1 SECONDS (24.3-36.9); Protime INR 1.1
[2024-12-16 09:24] LABS: Anion Gap 8.7 mEq/L (5.0-15.0); Potassium 3.7 mEq/L (3.5-5.1); Troponin High Sensitivity 8.5 pg/mL (<58.9)
[2024-12-16 10:03] LABS: Sqamous Epithelial <5 /HPF (None Seen); Transitional Epithelial <5 /HPF (None Seen); Urine Bacteria None Seen /HPF (<20); Urine Bilirubin NEGATIVE (Negative); Urine Blood Negative (Negative); Urine Clarity Clear (Clear); Urine Color Light-Yellow (Yellow); Urine Culture Reflex Order NOT NEEDED; Urine Glucose NEGATIVE (Negative); Urine Ketones NEGATIVE (Negative); Urine Microscopic Reflex YN ORDER UMIC; Urine Mucus Slight /HPF (None Seen); Urine Nitrite NEGATIVE (Negative); Urine Protein NEGATIVE (Negative); Urine RBC <5 /HPF (None Seen); Urine Urobilinogen Normal (Normal); Urine WBC <5 /HPF (<5)
[2024-12-16 10:04] LABS: Specific Gravity > 1.030 (1.005-1.030)
--- NOTE | 2024-12-16 10:13 | RAD REPORT ---
EXAM: Chest Single View HISTORY: 64 years Female hypoxemia COMPARISON: 12/30/2007 FINDINGS: LUNGS/PLEURA: The lungs are clear. No pleural effusions or pneumothorax. No pulmonary edema. CARDIAC/MEDIASTINUM: The cardiac silhouette is within normal limits. UPPER ABDOMEN: No significant abnormality. BONES: No acute abnormality. LINES/TUBES/OTHER: N/A IMPRESSION: No evidence of acute cardiopulmonary disease.
[2024-12-16] MEDS ORDERED: NA CHLORIDE 0.9% 500 ML ONE ×2 (10:57→14:53)
[2024-12-16] MEDS ORDERED: MORPHINE 2 MG/ML SYR ONE (10:57)
[2024-12-16] MEDS ORDERED: carBAMazepine 200 MG TAB ONE (10:57)
--- NOTE | 2024-12-16 11:04 | EDPHYS ---
Physician Documentation [facility] Name: Maryse Christie Age: 64 yrs Sex: Female : 1960 Arrival Date: 12/16/2024 Time: 08:26 Bed 13 Private MD: ED Physician Zhang Ahumada HPI: 12/16 09:35 This 64 yrs old Female presents to ER via Ambulatory with complaints of Headache, rn disoriented. 09:35 The patient complains of pain to the top of head and forehead. Onset: The rn symptoms/episode began/occurred yesterday. Associated signs and symptoms: Pertinent positives: altered mental status, dizziness, Pertinent negatives: fever, neck stiffness, rash, vision changes, vision loss, weakness, vertigo. The symptoms are alleviated by nothing. the symptoms are aggravated by nothing. The patient has not experienced similar symptoms in the past. Patient reports onset of headache and confusion yesterday. Denies head injury. No fever or chills. No vomiting. Reports frontal headache and hurts on top of head as well, throbbing, associated with confusion and having difficulty understanding things. Patient states she just does not feel right. Denies any focal weakness or numbness. No trauma.. Historical: - Allergies: 08:35 Cephalexin Monohydrate; ll1 - PMHx: 08:35 Hypertensive disorder; Hypercholesterolemia; Diabetes mellitus; ll1 - Immunization history:: Adult Immunizations up to date. - Infectious Disease History:: Denies. - Social history:: Smoking status: Patient/guardian denies using tobacco, the patient reports quitting approximately 10 years ago. - Family history:: not pertinent. - Hospitalizations: : No recent hospitalization is reported. ROS: 09:35 Constitutional: Negative for fever, chills, and weight loss, Neck: Negative for injury, rn pain, and swelling, Cardiovascular: Negative for chest pain, palpitations, and edema, Respiratory: Negative for shortness of breath, cough, wheezing, and pleuritic chest pain, Abdomen/GI: Positive for nausea, negative for vomiting Back: Negative for injury and pain, : Negative for injury, bleeding, discharge, and swelling, MS/Extremity: Negative for injury and deformity, Skin: Negative for injury, rash, and discoloration, Neuro: Positive for headache, negative for focal weakness/numbness/tingling/seizure Exam: 09:35 Constitutional: This is a well developed, well nourished patient who is awake, alert, rn slow to respond and sometimes inappropriate answers Head/Face: Normocephalic, atraumatic. Eyes: Pupils equal round and reactive to light, extra-ocular motions intact. Cardiovascular: Regular rate and rhythm. No pulse deficits. Respiratory: No increased work of breathing, no retractions or nasal flaring. Abdomen/GI: Soft, non-tender MS/ Extremity: Pulses equal, no cyanosis. Neurovascular intact. Full, normal range of motion. Equal circumference. Neuro: Awake and alert, GCS 15, oriented to person, place, not time. Cranial nerves II-XII grossly intact. Motor strength 5/5 in all extremities. Sensory grossly intact. Cerebellar exam normal. Get some questions and words mixed up, refers to head has "house". Difficulty following simple commands like raising eyebrows or smiling, seems confused 09:42 ECG was reviewed by the Attending Physician. rn Vital Signs: 08:36 BP 157 / 104; Pulse 72; Resp 17; Temp 97.5; Pulse Ox 97% ; Weight 81.65 kg; Height 5 ll1 ft. 8 in. ; 09:11 BP 153 / 69; Pulse 67; Resp 16 S; Pulse Ox 93% on R/A; kc6 10:35 BP 135 / 86; Pulse 67; Resp 21; Pulse Ox 99% on R/A; hb 11:50 BP 145 / 65; Pulse 60; Resp 18 S; Pulse Ox 94% on R/A; kc6 17:15 BP 173 / 75; Pulse 69; Resp 18; Pulse Ox 97% ; db 18:15 BP 159 / 79; Pulse 74; Resp 18; Pulse Ox 99% on R/A; db 18:15 BP 170 / 84; Pulse 67; Resp 18; Pulse Ox 97% ; db 08:36 Body Mass Index 27.37 (81.65 kg, 172.72 cm) ll1 NIH Stroke Scale Scores: 09:08 NIHSS Score: 1 kc6 16:00 NIHSS Score: 1 db 16:00 NIHSS Score: 1 db [place] Coma Score: 11:01 Eye Response: spontaneous(4). Motor Response: obeys commands(6). Verbal Response: rn oriented(5). Total: 15. 18:15 Eye Response: to voice(3). Motor Response: obeys commands(6). Verbal Response: db confused(4). Total: 13. MDM: 08:29 Medical Screening Exam initiated rn 11:01 Differential diagnosis: cluster headache, hypertensive headache, intracerebral rn hemorrhage, migraine, neoplasm, subarachnoid bleed, tension headache, vasomotor headache, Trigeminal neuralgia. Data reviewed: vital signs, nurses notes, lab test result(s), EKG, radiologic studies, CT scan, and as a result, I will admit patient. Consideration of Admission/Observation Patient was admitted/placed on observation. Escalation of care including admission/observation considered. Care significantly affected by the following chronic conditions: Diabetes, Hypertension. Counseling: I had a detailed discussion with the patient and/or guardian regarding the historical points, exam findings, and any diagnostic results supporting the discharge/admit diagnosis, lab results, radiology results, the need for further work-up and treatment in the hospital. Response to treatment: There is no appreciated change of the patient's symptoms at this time, and as a result, I will admit patient. ED course: Patient still not back to baseline. Still with inappropriate answers, examples are referring to her head as "house" or "breast". CT head and angio negative for acute findings, specifically bladder aneurysm. No LVO. Will admit to hospitalist service for stroke rule out.. 17:07 ED course: Dr Lemus called with results of MRI that was ordered. He states a rn differential diagnosis that includes early subarachnoid bleed versus cerebritis versus inflammation. Notified hospitalist service of results. Consulting with Dr. Brunson. Requesting transfer. . 17:29 ED course: Consulted with neuro ICU attending at [facility], he accepts patient rn for transfer, transfer center trying to obtain bed and will call us back. Updated spouse and patient, they are happy to go to [facility].. 12/16 08:35 Order name: Basic Metabolic Panel; Complete Time: 10:06 rn 12/16 08:35 Order name: CBC with Diff; Complete Time: 09:16 rn 12/16 08:35 Order name: High Sensitivity Troponin; Complete Time: 10:06 rn 12/16 08:35 Order name: Protime (+inr); Complete Time: 10:06 rn 12/16 08:35 Order name: Ptt, Activated; Complete Time: 10:06 rn 12/16 09:17 Order name: Urinalysis w/ reflexes; Complete Time: 10:06 rn 12/16 12:22 Order name: T4,Total; Complete Time: 17:24 EDMS 12/16 12:22 Order name: Basic Metabolic Panel EDMS 12/16 12:22 Order name: Basic Metabolic Panel EDMS 12/16 12:22 Order name: Basic Metabolic Panel EDMS 12/16 12:22 Order name: Basic Metabolic Panel EDMS 12/16 12:22 Order name: Basic Metabolic Panel EDMS 12/16 12:22 Order name: Basic Metabolic Panel EDMS 12/16 12:22 Order name: Lipid Profile EDMS 12/16 12:22 Order name: Lipid Profile EDMS 12/16 12:22 Order name: Magnesium EDMS 12/16 12:22 Order name: Magnesium EDMS 12/16 12:22 Order name: Magnesium EDMS 12/16 12:22 Order name: Magnesium EDMS 12/16 12:22 Order name: Magnesium EDMS 12/16 12:22 Order name: Magnesium EDMS 12/16 12:22 Order name: Phosphorus EDMS 12/16 12:22 Order name: Phosphorus EDMS 12/16 12:22 Order name: Phosphorus EDMS 12/16 12:22 Order name: Phosphorus EDMS 12/16 12:22 Order name: Phosphorus EDMS 12/16 12:22 Order name: Phosphorus EDMS 12/16 12:22 Order name: Thyroid Stimulating Hormone; Complete Time: 17:24 EDMS 12/16 12:22 Order name: CBC with Automated Diff EDMS 12/16 12:22 Order name: CBC with Automated Diff EDMS 12/16 12:22 Order name: CBC with Automated Diff EDMS 12/16 12:22 Order name: CBC with Automated Diff EDMS 12/16 12:22 Order name: CBC with Automated Diff EDMS 12/16 12:22 Order name: CBC with Automated Diff EDMS 12/16 12:23 Order name: Troponin High Sensitivity EDMS 12/16 12:23 Order name: Troponin High Sensitivity EDMS 12/16 12:23 Order name: Troponin High Sensitivity EDMS 12/16 08:35 Order name: CT Head Angio; Complete Time: 09:16 rn 12/16 08:35 Order name: CT Head Brain wo Cont; Complete Time: 09:16 rn 12/16 09:17 Order name: XRAY Chest (1 view); Complete Time: 10:27 rn 12/16 12:22 Order name: Echo with Doppler [facility] 12/16 12:23 Order name: Stroke Protocol [facility] 12/16 17:10 Order name: MRI; Complete Time: 17:24 [facility] 12/16 08:35 Order name: EKG; Complete Time: 08:35 rn 12/16 12:22 Order name: Physical Therapy Consult [facility] 12/16 12:22 Order name: Speech Therapy Consult [facility] 12/16 08:35 Order name: Accucheck; Complete Time: 09:07 rn 12/16 08:35 Order name: Cardiac monitoring; Complete Time: 09: rn 12/16 08:35 Order name: EKG - Nurse/Tech; Complete Time: 09: rn 12/16 08:35 Order name: IV Saline Lock; Complete Time: 09: rn 12/16 08:35 Order name: Labs collected and sent; Complete Time: 09: rn 12/16 08:35 Order name: NPO; Complete Time: 09: rn 12/16 08:35 Order name: O2 Per Protocol; Complete Time: 09: rn 12/16 08:35 Order name: O2 Sat Monitoring; Complete Time: 09: rn 12/16 08:35 Order name: Stroke Swallow Screen; Complete Time: 09:08 rn EC:42 Rate is 69 beats/min. Rhythm is regular. QRS [place] is Normal. MO interval is normal. QRS rn interval is prolonged at 148 msec. No Q waves. T waves are Normal. No ST changes noted. Clinical impression: NSR w/ Non-specific ST/T Changes. Interpreted by me. Reviewed by me. Administered Medications: 09:01 Drug: morphine IVP or IV 2 mg IVP once over 4 mins Route: IVP; Infused Over: 4 mins; hb Site: right antecubital; 10:00 Follow up: Response: No adverse reaction; Pain is decreased; RASS: Alert and Calm (0) 6 09:01 Drug: Ondansetron IVP 4 mg IVP once; over 2 minutes Route: IVP; Site: right antecubital;hb 10:00 Follow up: Response: No adverse reaction 6 11:05 Drug: morphine IVP or IV 2 mg IVP once over 4 mins Route: IVP; Infused Over: 4 mins; kc6 Site: right antecubital; 11:51 Follow up: Response: No adverse reaction; Pain is decreased; RASS: Alert and Calm (0) kc6 11:05 Drug: carBAMazepine PO 100 mg PO once Route: PO; kc6 11:51 Follow up: Response: No adverse reaction kc6 11:05 Drug: NS 0.9% IV 500 ml IV at bolus once; to be given as a bolus over 30 minutes Route: kc6 IV; Rate: bolus; Site: right antecubital; 13:00 Follow up: Response: No adverse reaction; IV Status: Completed infusion; IV Intake: kc6 500ml 12:05 Drug: Ondansetron IVP 4 mg IVP once; over 2 minutes Route: IVP; Site: right antecubital;kc6 13:00 Follow up: Response: No adverse reaction; Nausea is decreased; Vomiting decreased kc6 Disposition Summary: 12/16/24 17:25 Transfer Ordered Notes: Transfer Location: [facility] rn Reason: Higher level of care rn Condition: Stable(12/16/24 17:25) rn Problem: new(12/16/24 17:25) rn Symptoms: are unchanged(12/16/24 17:25) rn Accepting Physician: (12/16/24 19:02) ll1 Diagnosis - Headache rn - Altered mental status, unspecified(12/16/24 17:25) rn - Nontraumatic subarachnoid hemorrhage, unspecified rn Forms: - Medication Reconciliation Form rn - SBAR form furnace checker time excluding procedures: 17:24 Critical care time: Bedside Care: 25 minutes, Consultation: 10 minutes. Total time: 35 rn minutes NIH Stroke Scale - NIH Stroke Score Date: 12/16/2024 Time: 09:08 Total Score = 1 10. Dysarthria (speech clarity - read or repeat words) - 0(Normal) 11. Extinction and Inattention (visual/tactile/auditory/spatial/personal) - 0(No abnormality) 1a. Level of Consciousness (LOC) - 0(Alert) 1b. Level of Consciousness (LOC) (Month \\T\\ Age) - 0(Both) 1c. LOC Commands (Open \\T\\ Closes Eyes/Slab Stripper) - 0(Both) 2. Best Gaze (Lateral Gaze Paresis) - 0(Normal) 3. Visual Field Loss - 1(Partial hemianopia) 4. Facial Palsy - 0(Normal) 5a. Left Arm: Motor (10-second hold) - 0(No drift) 5b. Right Arm: Motor (10-second hold) - 0(No drift) 6a. Left Leg: Motor (5-second hold - always test supine) - 0(No drift) 6b. Right Leg: Motor (5-second hold - always test supine) - 0(No drift) 7. Limb Ataxia (finger/nose \\T\\ heel/[place] - test with eyes open) - 0(Absent) 8. Sensory Loss (pinprick arms/legs/face) - 0(Normal) 9. Best Language: Aphasia (description/naming/reading) - 0(No aphasia) Initials: [facility] NIH Stroke Scale - NIH Stroke Score Date: 12/16/2024 Time: 16:00 Total Score = 1 10. Dysarthria (speech clarity - read or repeat words) - 0(Normal) 11. Extinction and Inattention (visual/tactile/auditory/spatial/personal) - 0(No abnormality) 1a. Level of Consciousness (LOC) - 0(Alert) 1b. Level of Consciousness (LOC) (Month \\T\\ Age) - 1(One) 1c. LOC Commands (Open \\T\\ Closes Eyes/Slab Stripper) - 0(Both) 2. Best Gaze (Lateral Gaze Paresis) - 0(Normal) 3. Visual Field Loss - 0(No visual loss) 4. Facial Palsy - 0(Normal) 5a. Left Arm: Motor (10-second hold) - 0(No drift) 5b. Right Arm: Motor (10-second hold) - 0(No drift) 6a. Left Leg: Motor (5-second hold - always test supine) - 0(No drift) 6b. Right Leg: Motor (5-second hold - always test supine) - 0(No drift) 7. Limb Ataxia (finger/nose \\T\\ heel/[place] - test with eyes open) - 0(Absent) 8. Sensory Loss (pinprick arms/legs/face) - 0(Normal) 9. Best Language: Aphasia (description/naming/reading) - 0(No aphasia) Initials: NIH Stroke Scale - NIH Stroke Score Date: 12/16/2024 Time: 16:00 Total Score = 1 10. Dysarthria (speech clarity - read or repeat words) - 0(Normal) 11. Extinction and Inattention (visual/tactile/auditory/spatial/personal) - 0(No abnormality) 1a. Level of Consciousness (LOC) - 0(Alert) 1b. Level of Consciousness (LOC) (Month \\T\\ Age) - 1(One) 1c. LOC Commands (Open \\T\\ Closes Eyes/Slab Stripper) - 0(Both) 2. Best Gaze (Lateral Gaze Paresis) - 0(Normal) 3. Visual Field Loss - 0(No visual loss) 4. Facial Palsy - 0(Normal) 5a. Left Arm: Motor (10-second hold) - 0(No drift) 5b. Right Arm: Motor (10-second hold) - 0(No drift) 6a. Left Leg: Motor (5-second hold - always test supine) - 0(No drift) 6b. Right Leg: Motor (5-second hold - always test supine) - 0(No drift) 7. Limb Ataxia (finger/nose \\T\\ heel/[place] - test with eyes open) - 0(Absent) 8. Sensory Loss (pinprick arms/legs/face) - 0(Normal) 9. Best Language: Aphasia (description/naming/reading) - 0(No aphasia) Initials: db Signatures: Dispatcher [employer] EDMS Estephanie Marmolejo Roman, MD MD rn Baxter, Heather, RN RN Lisa De La Paz, RN RN ll1 Yamilex Hidalgo RN RN kc6 Ann-Marie Napier RN RN kb3 Corrections: (The following items were deleted from the chart) 12:41 11:03 Telemetry/MedSurg (Inpatient) rn kb3 12:41 11:03 rn kb3 16:43 12:41 [facility] ER HOLD kb3 bd 16:43 12:41 ERHOLD- kb3 bd 17:11 17:07 ED course: Dr Lemus called with results of MRI that was ordered. He rn states a differential diagnosis that includes early subarachnoid bleed versus cerebritis versus inflammation.. rn 17:24 16:43 Telemetry/MedSurg (Inpatient) bd kb3 17:24 16:43 231 bd kb3 17:25 11:03 Inpatient Admission rn rn 17:25 11:03 Pepe, Azfar rn rn 11:03 Stable rn rn 11:03 new rn rn 11:03 are unchanged rn rn 11:03 Standard rn rn 11:03 Altered mental status, unspecified rn rn 17:24 [facility] ER HOLD kb3 rn 17:24 ERHOLD- kb3 rn :02 17:25 Dr. thao ll1
--- NOTE | 2024-12-16 11:04 | ER ---
Nurse's Notes [facility] Name: Maryse Christie Age: 64 yrs Sex: Female : 1960 Arrival Date: 12/16/2024 Time: 08:26 Bed 13 Private MD: Diagnosis: Headache;Altered mental status, unspecified;Nontraumatic subarachnoid hemorrhage, unspecified Presentation: 12/16 08:36 Chief complaint: Patient states: L sided SHARP began yesterday. Confused, dizzy, near ll1 syncope feeling this morning. Coronavirus screen: Client denies travel out of the [place] in the last 14 days. At this time, the client does not indicate any symptoms associated with coronavirus-19. Ebola Screen: Patient denies travel to an Ebola-affected area in the 21 days before illness onset. Initial Sepsis Screen: Does the patient meet any 2 criteria? No. Patient's initial sepsis screen is negative. Does the patient have a suspected source of infection? No. Patient's initial sepsis screen is negative. Risk Assessment: Do you want to hurt yourself or someone else? Patient reports no desire to harm self or others. Onset of symptoms was December 15, 2024. 08:36 Method Of Arrival: Ambulatory ll1 08:36 Acuity: KALLIE 2 ll1 Triage Assessment: 08:37 General: Appears distressed, uncomfortable, Behavior is calm, cooperative, appropriate ll1 for age. Pain: Complains of pain in head Quality of pain is described as aching. Neuro: Reports dizziness, headache weakness no vision R eye. Historical: - Allergies: 08:35 Cephalexin Monohydrate; ll1 - PMHx: 08:35 Hypertensive disorder; Hypercholesterolemia; Diabetes mellitus; ll1 - Immunization history:: Adult Immunizations up to date. - Infectious Disease History:: Denies. - Social history:: Smoking status: Patient/guardian denies using tobacco, the patient reports quitting approximately 10 years ago. - Family history:: not pertinent. - Hospitalizations: : No recent hospitalization is reported. Screenin:37 [facility] ED Fall Risk Assessment (Adult) History of falling in the last 3 months, hb including since admission No falls in past 3 months (0 pts) Confusion or Disorientation Yes (5 pts) Intoxicated or Sedated No (0 pts) Impaired Gait Yes (1 pt) Mobility Assist Device Used No (0 pt) Altered Elimination No (0 pt) Score/Fall Risk Level 3 or more points = High Risk Oriented to surroundings, Maintained a safe environment, Educated pt \\T\\ family on fall prevention, incl call for assistance when getting out of bed, Assessed \\T\\ reinforced patient's understanding of fall precautions. Abuse screen: Denies threats or abuse. Denies injuries from another. Nutritional screening: No deficits noted. Tuberculosis screening: No symptoms or risk factors identified. 09:08 VAN Screening: Arm Drift: Patient shows no arm weakness. Patient is VAN negative. kc6 Visual Disturbance: Field Cut: Abnormal visual negrete noted. Provider notified of VAN + scoring. pt reports not being able to see out of the left eye, however upon exam the pt is unable to pinpoint visual deficits. Aphasia: No aphasia noted. Neglect: No neglect noted. Pam Swallow Protocol Brief Cognitive Screen What is your name? Normal, Where are you right now? Abnormal What year is it? Abnormal Oral Mechanism Examination Facial Symmetry: Normal, Motion: Normal, Lip Closure: Normal, Oral Mechanism Result: Normal. 3 oz Water Swallow Challenge: Pt able to drink all water without stopping, coughing, choking or throat clearing: Yes Result: PASS MD Notified: Zhang Ahumada MD. Assessment: 08:38 Reassessment: PT TO CT VIA STRETCHER WITH YAMILEX VALVERDE. hb 08:38 General: Appears in no apparent distress. uncomfortable, well groomed, well developed, kc6 Behavior is cooperative, anxious, restless. Pain: Complains of pain in "headache" Quality of pain is described as dull, throbbing, Pain began last PM. Neuro: Level of Consciousness is awake, alert, obeys commands, confused, Oriented to person, Clinical Support Specialist are equal bilaterally Moves all extremities. Full function Gait is steady, Speech is normal, Facial symmetry appears normal, Facial symmetry: tongue is midline, Pupils are PERRLA, Intact Babinski is positive Reports blurred vision in the left eye headache in left parietal area, Denies weakness dizziness, numbness. Cardiovascular: Denies chest pain, shortness of breath, Heart tones S1 S2 present Capillary refill < 3 seconds Rhythm is regular. Respiratory: Airway is patent Trachea midline Respiratory effort is even, unlabored, Respiratory pattern is regular, symmetrical. GI: No signs and/or symptoms were reported involving the gastrointestinal system. : No signs and/or symptoms were reported regarding the genitourinary system. Derm: No signs and/or symptoms reported regarding the dermatologic system. Skin is intact, is healthy with good turgor, Skin is pink, warm \\T\\ dry. Musculoskeletal: No signs and/or symptoms reported regarding the musculoskeletal system. Circulation, motion, and sensation intact. Range of motion: intact in all extremities. 10:35 Reassessment: Patient appears in no apparent distress at this time. No changes from hb previously documented assessment. Patient and/or family updated on plan of care and expected duration. Pain level reassessed. 11:50 Reassessment: Patient appears in no apparent distress at this time. No changes from kc6 previously documented assessment. Patient and/or family updated on plan of care and expected duration. Pain level reassessed. 12:50 Reassessment: Patient appears in no apparent distress at this time. No changes from kc6 previously documented assessment. Patient and/or family updated on plan of care and expected duration. Pain level reassessed. 14:35 Reassessment: PATIENT AMBULATORY TO RESTROOM. db 16:00 Reassessment: Patient appears in no apparent distress at this time. Patient and/or db family updated on plan of care and expected duration. Pain level reassessed. 18:18 Reassessment: Patient appears in no apparent distress at this time. CALLED [facility] FOR PATIENT TRANSFER TO NEURO ICU [address] [place] [address] BED 10 [phone]. 18:23 Reassessment: REPORT CALLED TO NICOLLE MILLER AT RECEIVING FACILITY. db 18:45 Reassessment: EMS ARRIVAL FOR PATIENT TRANSPORT. Vital Signs: 08:36 BP 157 / 104; Pulse 72; Resp 17; Temp 97.5; Pulse Ox 97% ; Weight 81.65 kg; Height 5 ll1 ft. 8 in. ; 09:11 BP 153 / 69; Pulse 67; Resp 16 S; Pulse Ox 93% on R/A; kc6 10:35 BP 135 / 86; Pulse 67; Resp 21; Pulse Ox 99% on R/A; hb 11:50 BP 145 / 65; Pulse 60; Resp 18 S; Pulse Ox 94% on R/A; kc6 17:15 BP 173 / 75; Pulse 69; Resp 18; Pulse Ox 97% ; db 18:15 BP 159 / 79; Pulse 74; Resp 18; Pulse Ox 99% on R/A; db 18:15 BP 170 / 84; Pulse 67; Resp 18; Pulse Ox 97% ; db 08:36 Body Mass Index 27.37 (81.65 kg, 172.72 cm) ll1 Kevin Coma Score: 11:01 Eye Response: spontaneous(4). Motor Response: obeys commands(6). Verbal Response: rn oriented(5). Total: 15. 18:15 Eye Response: to voice(3). Motor Response: obeys commands(6). Verbal Response: db confused(4). Total: 13. NIH Stroke Scale Scores: 09:08 NIHSS Score: 1 kc6 16:00 NIHSS Score: 1 db 16:00 NIHSS Score: 1 db ED Course: 08:27 Patient arrived in ED. im 08:29 Zhang Ahumada MD is Attending Physician. rn 08:35 Arm band placed on Patient placed in an exam room, on a stretcher. ll1 08:35 Door closed. Noise minimized. Lights dimmed. Warm blanket given. Pillow given. Verbal kc6 reassurance given. 08:37 Triage completed. ll1 08:37 Patient has correct armband on for positive identification. Bed in low position. Call hb light in reach. Provided Education on: USE OF CALL LIGHT . Client placed on continuous cardiac and pulse oximetry monitoring. NIBP monitoring applied. top lift compressor on. Pulse ox on. NIBP on. 08:56 CT Head Angio In Process Unspecified. EDMS 08:56 CT Head Brain wo Cont In Process Unspecified. EDMS 09:00 Initial lab(s) drawn, by ED staff, sent to lab. Inserted saline lock: 20 gauge in right hb antecubital area, using aseptic technique. ,using aseptic technique. BY YAMILEX VALVERDE Blood collected. Flushed with 10 mL NS. 09:00 Patient maintains SpO2 saturation greater than 95% on room air. kc6 09:01 Basic Metabolic Panel Sent. hb 09:01 CBC with Diff Sent. hb 09:01 High Sensitivity Troponin Sent. hb 09:01 Protime (+inr) Sent. hb 09:01 Ptt, Activated Sent. hb 09:07 Yamilex Hidalgo, RN is Primary Nurse. kc6 09:44 Assisted to bedside commode. kc6 09:44 Urine collected: clean catch specimen, clear. kc6 10:03 XRAY Chest (1 view) In Process Unspecified. EDMS 11:03 Neris Cantu MD is Hospitalizing Provider. rn 13:00 Report given to Gisele Crespo RN. kc6 13:00 No provider procedures requiring assistance completed. Patient admitted, IV remains in kc6 place. 17:35 initiated transfer to [facility]. bd Administered Medications: 09:01 Drug: morphine IVP or IV 2 mg IVP once over 4 mins Route: IVP; Infused Over: 4 mins; hb Site: right antecubital; 10:00 Follow up: Response: No adverse reaction; Pain is decreased; RASS: Alert and Calm (0) kc6 09:01 Drug: Ondansetron IVP 4 mg IVP once; over 2 minutes Route: IVP; Site: right antecubital;hb 10:00 Follow up: Response: No adverse reaction kc6 11:05 Drug: morphine IVP or IV 2 mg IVP once over 4 mins Route: IVP; Infused Over: 4 mins; kc6 Site: right antecubital; 11:51 Follow up: Response: No adverse reaction; Pain is decreased; RASS: Alert and Calm (0) kc6 11:05 Drug: carBAMazepine PO 100 mg PO once Route: PO; kc6 11:51 Follow up: Response: No adverse reaction kc6 11:05 Drug: NS 0.9% IV 500 ml IV at bolus once; to be given as a bolus over 30 minutes Route: kc6 IV; Rate: bolus; Site: right antecubital; 13:00 Follow up: Response: No adverse reaction; IV Status: Completed infusion; IV Intake: kc6 500ml 12:05 Drug: Ondansetron IVP 4 mg IVP once; over 2 minutes Route: IVP; Site: right antecubital;kc6 13:00 Follow up: Response: No adverse reaction; Nausea is decreased; Vomiting decreased kc6 Medication: 08:37 VIS not applicable for this client. hb Intake: 13:00 IV: 500ml; Total: 500ml. kc6 Outcome: 11:03 Decision to Hospitalize by Provider. rn 13:00 Admitted to ER Hold. Please see [facility] for further documentation. kc6 13:00 Condition: good 13:00 Instructed on the need for admit, 17:25 ER care complete, transfer ordered by . rn 18:35 Transferred db 18:35 Transferred by ground EMS Note: PATIENT PENDING EMS 18:50 Transferred by ground EMS to [facility], [facility], Transfer form completed. db X-rays sent w/ patient. 18:50 Condition: stable 18:50 Instructed on the need for transfer, 19:02 Patient left the ED. ll1 NIH Stroke Scale - NIH Stroke Score Date: 12/16/2024 Time: 09:08 Total Score = 1 10. Dysarthria (speech clarity - read or repeat words) - 0(Normal) 11. Extinction and Inattention (visual/tactile/auditory/spatial/personal) - 0(No abnormality) 1a. Level of Consciousness (LOC) - 0(Alert) 1b. Level of Consciousness (LOC) (Month \\T\\ Age) - 0(Both) 1c. LOC Commands (Open \\T\\ Closes Eyes/Laser Operator) - 0(Both) 2. Best Gaze (Lateral Gaze Paresis) - 0(Normal) 3. Visual Field Loss - 1(Partial hemianopia) 4. Facial Palsy - 0(Normal) 5a. Left Arm: Motor (10-second hold) - 0(No drift) 5b. Right Arm: Motor (10-second hold) - 0(No drift) 6a. Left Leg: Motor (5-second hold - always test supine) - 0(No drift) 6b. Right Leg: Motor (5-second hold - always test supine) - 0(No drift) 7. Limb Ataxia (finger/nose \\T\\ heel/almeida - test with eyes open) - 0(Absent) 8. Sensory Loss (pinprick arms/legs/face) - 0(Normal) 9. Best Language: Aphasia (description/naming/reading) - 0(No aphasia) Initials: kc6 NIH Stroke Scale - NIH Stroke Score Date: 12/16/2024 Time: 16:00 Total Score = 1 10. Dysarthria (speech clarity - read or repeat words) - 0(Normal) 11. Extinction and Inattention (visual/tactile/auditory/spatial/personal) - 0(No abnormality) 1a. Level of Consciousness (LOC) - 0(Alert) 1b. Level of Consciousness (LOC) (Month \\T\\ Age) - 1(One) 1c. LOC Commands (Open \\T\\ Closes Eyes/Laser Operator) - 0(Both) 2. Best Gaze (Lateral Gaze Paresis) - 0(Normal) 3. Visual Field Loss - 0(No visual loss) 4. Facial Palsy - 0(Normal) 5a. Left Arm: Motor (10-second hold) - 0(No drift) 5b. Right Arm: Motor (10-second hold) - 0(No drift) 6a. Left Leg: Motor (5-second hold - always test supine) - 0(No drift) 6b. Right Leg: Motor (5-second hold - always test supine) - 0(No drift) 7. Limb Ataxia (finger/nose \\T\\ heel/almeida - test with eyes open) - 0(Absent) 8. Sensory Loss (pinprick arms/legs/face) - 0(Normal) 9. Best Language: Aphasia (description/naming/reading) - 0(No aphasia) Initials: db NIH Stroke Scale - NIH Stroke Score Date: 12/16/2024 Time: 16:00 Total Score = 1 10. Dysarthria (speech clarity - read or repeat words) - 0(Normal) 11. Extinction and Inattention (visual/tactile/auditory/spatial/personal) - 0(No abnormality) 1a. Level of Consciousness (LOC) - 0(Alert) 1b. Level of Consciousness (LOC) (Month \\T\\ Age) - 1(One) 1c. LOC Commands (Open \\T\\ Closes Eyes/Laser Operator) - 0(Both) 2. Best Gaze (Lateral Gaze Paresis) - 0(Normal) 3. Visual Field Loss - 0(No visual loss) 4. Facial Palsy - 0(Normal) 5a. Left Arm: Motor (10-second hold) - 0(No drift) 5b. Right Arm: Motor (10-second hold) - 0(No drift) 6a. Left Leg: Motor (5-second hold - always test supine) - 0(No drift) 6b. Right Leg: Motor (5-second hold - always test supine) - 0(No drift) 7. Limb Ataxia (finger/nose \\T\\ heel/almeida - test with eyes open) - 0(Absent) 8. Sensory Loss (pinprick arms/legs/face) - 0(Normal) 9. Best Language: Aphasia (description/naming/reading) - 0(No aphasia) Initials: db Signatures: Dispatcher [employer] EDYolanda Gramajoara bd Ahumada, Zhang, MD MD rn Ji, Shira, RN RN hb Lisa Zavala RN RN ll1 Yamilex Hidalgo RN RN kc6 Gisele Crespo RN RN db Yadi Carranza
[2024-12-16] MEDS ORDERED: ACETAMINOPHEN 650MG/RECT SUPP PR PRN (12:14)
[2024-12-16] MEDS ORDERED: MORPHINE 2 MG/ML SYR IV PRN (12:21)
[2024-12-16] MEDS ORDERED: HYDROCODONE/APAP 7.5/325 MG TAB PO PRN (12:21)
--- NOTE | 2024-12-16 12:36 | P.HP ---
Certification for Inpatient Patient admitted to: Observation With expected LOS: <2 Midnights Practitioner: I am a practitioner with admitting privileges, knowledge of patient current condition, hospital course, and medical plan of care. Services: Services provided to patient in accordance with Admission requirements found in Title 42 Section 412.3 of the Code of Federal Regulations Patient History Date of Service: 12/16/24 Reason for admission: Acute vs subacute CVA History of Present Illness: Maryse Christie is a 64 year old female with Hypertensive disorder; Hy percholesterolemia; Diabetes mellitus, 23 TIA, who presents to the ED with c/O of strokelike symptoms onset last night, symptoms include AMS, headache, and dizziness. at the bedside reports she has had 23 "ministrokes" blaming it on her previous . On evaluation, She is complaining of a headache radiating down her neck, she knows her name and her husbands name. Laboratory evaluation unremarkable. Initial vitals CT head reports CTA head and neck reports Maryse will be admitted to hospitalist service for furher evaluation and treatmnt of acute vs subacute CVA. Allergies cephalexin monohydrate [From Keflex] Allergy (Intermediate, Verified 12/08/11 15:15) Itching/Hives/Rash Penicillins Allergy (Mild, Verified 06/18/24 09:26) Rash Home Medications: Aspirin [Aspirin EC] 1 tab PO DAILY 06/18/24 Duloxetine HCl 1 tab PO DAILY 06/18/24 Losartan Potassium 1 tab PO DAILY 06/18/24 Memantine HCl 1 tab PO BID 06/18/24 Metformin HCl [Metformin HCl ER] 1 tab PO DAILY 06/18/24 Metoprolol Succinate 1 tab PO DAILY 06/18/24 Rosuvastatin Calcium 1 tab PO DAILY 06/18/24 Physical Examination - Studies Laboratory Data (last 24 hrs) 12/16/24 12/16/24 12/16/24 09:00 09:00 09:00 WBC 4.20 L Hgb 12.4 Hct 35.4 L Plt Count 179 PT 12.5 INR 1.10 APTT 31.1 Sodium 141 Potassium 3.7 BUN 9 Creatinine 0.72 Glucose 130 H Assessment and Plan - Plan Assessment and Plan Acute vs subacute CVA - Advance Directives Does patient have a Living Will: No Does patient have a Durable POA for Healthcare: No
[2024-12-16 12:59] LABS: T4,Total 9.1 ug/dL (4.8-13.9); Thyroid Stimulating Hormone 2.14 uIU/mL (0.358-3.740)
[2024-12-16] MEDS: NA CHLORIDE 0.9% 1,000 ML IV SCH (14:00)
[2024-12-16] MEDS ORDERED: LORazepam 2 MG/ML VIAL ONE (14:52)
[2024-12-16] MEDS ORDERED: NA CHLORIDE 0.9% 1,000 ML ONE (14:53)
[2024-12-16] MEDS: NA CHLORIDE 0.9% 500 ML IV ONE (14:55)
[2024-12-16] MEDS: LORazepam 2 MG/ML VIAL IV ONE (15:01)
[2024-12-16 16:34] VITALS: BMI 27.3
--- NOTE | 2024-12-16 17:09 | RAD REPORT ---
EXAMINATION: MRI BRAIN WITHOUT CONTRAST CLINICAL INDICATION: Female, 64 years old.[facility] N CVA r/o TECHNIQUE: Multiplanar multisequence MR images of the brain were obtained without intravenous contras t. Unless otherwise specified, incidental findings do not require dedicated imaging follow-up. COMPARISON: Head CT and CT angiogram of earlier the same day MRI brain 08/19/2024 FINDINGS: INTRACRANIAL: Midline structures are unremarkable. Diffusion-weighted images show no acute or early subacute infarction. Failure of CSF suppression along the left lateral lung base on temporal as well as adjacent left occipital sulci. Suggestion of mild cortical edema in the posterior basal tempo ral region. Apart from mild sulci effacement in these regions, no significant mass effect. The ventricles are normal in size and morphology. No augmented susceptibility signal abnormality. The re is no mass effect or midline shift. No abnormal extraaxial fluid collection. VASCULATURE: Normal signal voids in the larger intracranial arteries and dural venous sinuses. SINUSES: The paranasal sinuses and mastoid air cells are predominantly clear. BONE: The marrow signal pattern is within normal limits. IMPRESSION: Failure of CSF suppression along the left temporal and occipital sulci. The findings could relate to early subarachnoid hemorrhage, however inflammatory changes in the setting of meningitis or meningeal encephalitis, whether infectious or inflammatory in nature, could result in a similar appea kane. Neurologic consultation is recommended. Consider follow-up CT in 4 hours, to evaluate for evolution of hemorrhage. THIS REPORT CONTAINS FINDINGS THAT MAY BE CRITICAL TO PATIENT CARE. The findings were verbally commun icated via telephone to Zhang Ahumada M.D. on 12/16/2024 5:04 PM.
--- NOTE | 2024-12-16 17:54 | P.SSS ---
Patient History Date of Service: 12/16/24 Reason for admission: Acute vs subacute CVA History of Present Illness: Maryse Christie is a 64 year old female with Hypertensive disorder; Hypercholesterolemia; Diabetes mellitus, 23 TIA, who presents to the ED with c/O of strokelike symptoms onset last night, symptoms include AMS, headache, and dizziness. at the bedside reports she has had 23 "ministrokes" blaming it on her previous . On evaluation, She is complaining of a headache radiating down her neck, she knows her name and her husbands name. Laboratory evaluation unremarkable. Initial vitals BP 157 / 104; Pulse 72; Resp 17; Temp 97.5; Pulse Ox 97% CT head reports "No acute intracranial abnormality. " CTA head reports "No occlusion, aneurysm, or hemodynamically significant stenosis identified MRI reports "Failure of CSF suppression along the left temporal and occipital sulci. The findings could relate to early subarachnoid hemorrhage, however inflammatory changes in the setting of meningitis or meningeal encephalitis, whether infectious or inflammatory in nature, could result in a similar appearance. Neurologic consultation is recommended. Consider follow-up CT in 4 hours, to evaluate for evolution of hemorrhage." Maryse will be transferred to [facility] to the neuro ICU. Allergies cephalexin monohydrate [From Keflex] Allergy (Intermediate, Verified 12/08/11 15:15) Itching/Hives/Rash Penicillins Allergy (Mild, Verified 06/18/24 09:26) Rash Home Medications: Aspirin [Aspirin EC] 1 tab PO DAILY 06/18/24 Duloxetine HCl 1 tab PO DAILY 06/18/24 Losartan Potassium 1 tab PO DAILY 06/18/24 Memantine HCl 1 tab PO BID 06/18/24 Metformin HCl [Metformin HCl ER] 1 tab PO DAILY 06/18/24 Metoprolol Succinate 1 tab PO DAILY 06/18/24 Rosuvastatin Calcium 1 tab PO DAILY 06/18/24 - Past Medical/Surgical History -: HTN -: hypercholesterolemia -: DM -: TIA Past Surgical History: Reviewed- Non-Contributory - Social History Smoking Status: Never smoker Alcohol use: No CD- Drugs: No Review of Systems Other: Per HPI Physical Examination - Vital Signs Temperature: 97.6 F Blood Pressure: 167/81 Pulse: 67 Respirations: 16 Pulse Ox (%): 97 - Physical Exam General: Alert, Oriented x3 HEENT: Atraumatic, Normocephalic Neck: Supple, 2+ carotid pulse no bruit Respiratory: Clear to auscultation bilaterally, Normal air movement Cardiovascular: No edema Capillary refill: <2 Seconds Gastrointestinal: Normal bowel sounds, Soft and benign Musculoskeletal: No clubbing Integumentary: No rashes - Studies Laboratory Data (last 24 hrs) 12/16/24 12/16/24 12/16/24 09:00 09:00 09:00 WBC 4.20 L Hgb 12.4 Hct 35.4 L Plt Count 179 PT 12.5 INR 1.10 APTT 31.1 Sodium 141 Potassium 3.7 BUN 9 Creatinine 0.72 Glucose 130 H Treatment Summary: Assessment and Plan Acute vs subacute CVA -MRI reports early subarachnoid hemorrhage -transfer initiate and accepted to [facility] to the neuro ICU. -Folic acid -hold aspirin, plavix, and lovenox -NIH 1 (loss of vision) -Neurology consulted and recommended transfer Diabetes mellitus -accucheck with SSI Hypertensive disorder Hypercholesterolemia -Continue home medications DVT ppx SCD Full code LOS 24 hour OBS- transfer pending - Disposition Disposition: ROUTINE DISCHARGE Diet: Regular Activity: Fall precautions
[2024-12-16 19:31] VITALS: TEMP 97.5
[2024-12-16 19:36] VITALS: BP 145/65; O2SAT 94
[2024-12-16] MEDS ORDERED: ATORVASTATIN 40 MG TAB PO SCH (21:00)
--- NOTE | 2024-12-16 22:57 | RAD REPORT ---
EXAM: CT Head Brain Wo Cont HISTORY: subarachnoid bleed r/o COMPARISON: Head CT and CT angiogram of earlier the same day TECHNIQUE: Multiple contiguous axial images were obtained for a CT of the brain without contrast. Sag ittal and coronal reformats were performed. One or more of the following dose reduction techniques were used: Automated exposure control, adjus tment of the mA and kV according to patient size, and iterative reconstruction. Unless otherwise specified, incidental findings do not require dedicated imaging follow-up. FINDINGS: No evidence of hydrocephalus, intracranial hemorrhage, or extra-axial fluid collection. Mild brain atrophy with mild periventricular and deep white matter chronic microvascular ischemic ch anges present. The calvarium is intact. The visualized paranasal sinuses and mastoid air cells are essentially clear . IMPRESSION: No evidence of acute intracranial abnormality. Specifically, no central hypodensity with attention to the left temporal/occipital region.
[2024-12-17] MEDS ORDERED: ENOXAPARIN 40 MG/0.4 ML SQ SCH (09:00)
[2024-12-17] MEDS ORDERED: CLOPIDOGREL 75 MG TABLET PO SCH (09:00)
[2024-12-17] MEDS ORDERED: ASPIRIN EC 81 MG TAB PO SCH (09:00)
[2024-12-17] MEDS ORDERED: FOLIC ACID 1 MG in NA CHLORIDE 0.9% 50 ML IV SCH (09:00)
== END 2024-12-16 19:00 | disposition short-term general hospital (02) ==
LOC: ER 08:26 → ERHOLD 12:14 → 2ND 17:06 → ERHOLD 17:55
PROVIDERS: ADMIT Family Medicine; ATTEND Family Medicine
DX: I60.9 Nontraumatic subarachnoid hemorrhage, unspecified (principal); R29.701 NIHSS score 1; R41.82 Altered mental status, unspecified; R42 Dizziness and giddiness; I10 Essential (primary) hypertension; E78.00 Pure hypercholesterolemia, unspecified; E11.9 Type 2 diabetes mellitus without complications; Z86.73 Personal history of transient ischemic attack (TIA), and cerebral infarction without residual deficits; Z88.0 Allergy status to penicillin; Z79.82 Long term (current) use of aspirin
CPT/HCPCS: 93005; 85025; 81001; 80048; 36415; 85610; 85730; 84436; 84443; 84484; 70450 ×2; 70496; 71045; 70551; Q9967; J2270; J2405 ×2; J7040 ×2; J7030; G0378